=== PATIENT | male | born 1945 | race Caucasian/White ===

== ENCOUNTER → 2016-07-30 | Outpatient (CLI) | payer MEDICARE | END | disposition home or self-care (01) | LOC: LABWHC1 15:15 → EDSTATUS 15:21 | PROVIDERS: ATTEND Family Medicine | DX: R50.9 Fever, unspecified (principal); R09.1 Pleurisy; J20.9 Acute bronchitis, unspecified | CPT/HCPCS: 87502 ==

== ENCOUNTER → 2018-05-09 | Outpatient (CLI) | payer MEDICARE ==
--- NOTE | 2018-05-09 09:34 | MR ---
EXAMINATION TYPE: MR brain wo/w con DATE OF EXAM: 05/09/2018 9:00 AM COMPARISON: NONE HISTORY: Headaches TECHNIQUE: Multiplanar, multiecho imaging of the brain was obtained with and without intravenous adm inistration of 7.5 mL intravenous Gadavist. FINDINGS: Midline structures are unremarkable. There is a normal craniocervical junction. Echoplanar diffusion imaging is normal. There are normal vascular flow voids. The orbits are normal. There is no evidence of a CP angle mass lesion. There are rare subcentimeter FLAIR lesions in the deep white matter tracts of the cerebral hemisphere s. These number approximately 4. These are nonspecific. A differential diagnosis would include hypert ension, demyelination, small vessel disease, migraine headaches and Lyme's disease. There is no mass effect, midline shift or intracranial blood. Following the intravenous administration of gadolinium, I do not see evidence of abnormal enhancement . IMPRESSION: 1. NO ACUTE INTRACRANIAL ABNORMALITY. 2. RARE, FLAIR LESIONS OF UNCERTAIN ETIOLOGY.
== END ==
LOC: RADMRIMAIN 07:33
PROVIDERS: ATTEND Internal Medicine Geriatric Medicine
DX: R51 Headache (principal); Z01.818 Encounter for other preprocedural examination
CPT/HCPCS: 82565; 84520; 70553; 36415; A9585

== ENCOUNTER → 2020-02-01 | Outpatient (CLI) | payer MEDICARE | END | disposition home or self-care (01) | LOC: LABWHC1 11:14 | PROVIDERS: ATTEND Nurse Practitioner | DX: R11.0 Nausea (principal) | CPT/HCPCS: 36415; 83013 ==

== ENCOUNTER → 2020-05-25 | Outpatient (CLI) | payer MEDICARE ==
--- NOTE | 2020-05-25 10:28 | US ---
EXAMINATION TYPE: US kidneys/renal and bladder DATE OF EXAM: 05/25/2020 COMPARISON: NONE CLINICAL HISTORY: N20.1 Calculus of Ureter. 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 Mild right hydronephrosis. 2. Suspected left hydronephrosis. A peripelvic cyst could be considered.
== END | disposition home or self-care (01) ==
LOC: RADUSWWP 09:42
PROVIDERS: ATTEND Urology
DX: N13.30 Unspecified hydronephrosis (principal)
CPT/HCPCS: 76770

== ENCOUNTER 2020-12-07 20:31 | Emergency (ER) | payer MEDICARE ==
[2020-12-07 20:45] VITALS: BP 159/73; PULSE 58; RESP 17; TEMP 98.2
[2020-12-07] MEDS ORDERED: FLUORESCEIN STRIPS 1 MG STRIP LEFT EYE ONE (21:23)
[2020-12-07] MEDS ORDERED: PROPARACAINE 0.5% OPHTH DROPS 15 ML BTL LEFT EYE STA (21:23)
[2020-12-07] MEDS ORDERED: POLYMYXIN B-TRIMETHOPRIM SULF (10,000-1) OPHTH DROPS 10 ML BTL LEFT EYE STA (21:53)
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
== END 2020-12-07 22:31 | disposition home or self-care (01) ==
LOC: EC 20:31
DX: T15.02XA Foreign body in cornea, left eye, initial encounter (principal); E11.9 Type 2 diabetes mellitus without complications; K21.9 Gastro-esophageal reflux disease without esophagitis; Z79.84 Long term (current) use of oral hypoglycemic drugs; Z79.899 Other long term (current) drug therapy; W22.8XXA Striking against or struck by other objects, initial encounter
CPT/HCPCS: 65222; 99283

== ENCOUNTER 2022-09-06 11:27 | Inpatient (IN) | payer MEDICARE ==
[2022-09-06] MEDS ORDERED: ACETAMINOPHEN TAB 500 MG TAB PO STA (11:29)
[2022-09-06] MEDS ORDERED: IBUPROFEN 600 MG TAB PO STA (11:29)
--- NOTE | 2022-09-06 11:34 | ED ---
General Adult HPI - General Stated complaint: Weakness Time Seen by Provider: 09/06/22 11:27 Source: patient, RN notes reviewed, old records reviewed - History of Present Illness Initial comments: This is a 77-year-old male presents emergency Department because he started not feeling well yesterday. Today he was found outside sitting in the sun with 101 fever according to EMS. Patient stated he is vomiting this morning. Patient states he had coded and because of that he is being treated for pericarditis and A. fib. According to EMS states that he is not responding as quick as he normally does. Patient denies any chest pain or palpitations. Patient denies abdominal pain. Patient states is no longer nauseated. Patient denies any dysuria hematuria urinary frequency. - Related Data Home Medications Medication Instructions Recorded Confirmed Atorvastatin [Lipitor] 20 mg PO HS 04/26/14 09/06/22 Omeprazole [PriLOSEC] 20 mg PO DAILY 04/26/14 09/06/22 ARIPiprazole 2 mg PO PC-[id number] 07/30/22 09/06/22 Aspirin EC [Ecotrin Low Dose] 81 mg PO HS 07/30/22 09/06/22 Docusate [Colace] 100 mg PO BID 07/30/22 09/06/22 Levothyroxine Sodium [Synthroid] 75 mcg PO DAILY 07/30/22 09/06/22 Insulin Degludec [Tresiba 12 units SQ DIRECTED 09/06/22 09/06/22 Flextouch U-100 Pen] Losartan [Cozaar] 25 mg PO DAILY 09/06/22 09/06/22 Metoprolol Tartrate [Lopressor] 25 mg PO DAILY PRN 09/06/22 09/06/22 amLODIPine [Norvasc] 2.5 mg PO HS 09/06/22 09/06/22 metFORMIN HCL 500 mg PO BID 09/06/22 09/06/22 Previous Rx's Medication Instructions Recorded Colchicine [Colcrys] 0.6 mg PO DAILY 14 Days #14 each 07/31/22 Apixaban [Eliquis] 5 mg PO BID #60 tab 08/01/22 Allergies Allergy/AdvReac Type Severity Reaction Status Date / Time No Known Allergies Allergy Verified 09/06/22 13:20 Review of Systems ROS Statement: Those systems with pertinent positive or pertinent negative responses have been documented in the HPI. ROS Other: All systems not noted in ROS Statement are negative. Past Medical History Past Medical History: Cancer, Diabetes Mellitus, GERD/Reflux Additional Past Medical History / Comment(s): hx kidney stones, prostate cancer, r leg stent History of Any Multi-Drug Resistant Organisms: None Reported Past Surgical History: Hernia Repair Additional Past Surgical History / Comment(s): prostatectomy, lithotripsy, cataract, pyeloplasty, Past Anesthesia/Blood Transfusion Reactions: No Reported Reaction Past Psychological History: Depression Smoking Status: Never smoker Past Alcohol Use History: Occasional Additional Past Alcohol Use History / Comment(s): 1 glass wine daily Past Drug Use History: None Reported - Past Family History Father Family Medical History: Cancer General Exam - General Exam Comments Initial Comments: GENERAL: Patient is well-developed and well-nourished. Patient is nontoxic and well- hydrated and is in mild distress. Patient is 102 temperature ENT: Neck is soft and supple. No significant lymphadenopathy is noted. Oropharynx is clear. Moist mucous membranes. Neck has full range of motion without eliciting any pain. EYES: The sclera were anicteric and conjunctiva were pink and moist. Extraocular movements were intact and pupils were equal round and reactive to light. Eyelids were unremarkable. PULMONARY: Unlabored respirations. Good breath sounds bilaterally. No audible rales rhonchi or wheezing was noted. CARDIOVASCULAR: There is a regular rate and rhythm without any murmurs gallops or rubs. ABDOMEN: Soft and nontender with normal bowel sounds. SKIN: Skin is clear with no lesions or rashes and otherwise unremarkable. NEUROLOGIC: Patient is alert and oriented 2. Cranial nerves II through XII are grossly intact. Motor and sensory are also intact. Normal speech, volume and content. Symmetrical smile. MUSCULOSKELETAL: Normal extremities with adequate strength and full range of motion. No lower extremity swelling or edema. No calf tenderness. LYMPHATICS: No significant lymphadenopathy is noted PSYCHIATRIC: Normal psychiatric evaluation. Course Vital Signs 09/06/22 09/06/22 09/06/22 11:33 12:43 13:26 Temperature 102.2 F H 100.4 F H 98.8 F Pulse Rate 71 64 64 Respiratory 16 18 17 Rate Blood Pressure 128/76 110/65 110/65 O2 Sat by Pulse 93 L 93 L 96 Oximetry 04/14/23 04/14/23 14:15 15:01 Temperature 98 F Pulse Rate 60 60 Respiratory 18 17 Rate Blood Pressure 99/59 109/66 O2 Sat by Pulse 97 94 L Oximetry Medical Decision Making - Medical Decision Making EKG was interpreted by myself shows a sinus rhythm at 73 bpm WV interval 266 QRS 96 QT interval 361 QTC is 386. Patient's EKG shows no ST segment elevation or depression. Was pt. sent in by a medical professional or institution (, PA, BLAST FURNACE KEEPER HELPER, urgent care, hospital, or assisted...) When possible be specific @ -No Did you speak to anyone other than the patient for history (EMS, parent, family, police, friend...)? What history was obtained from this source @ -No Did you review nursing and triage notes (agree or disagree)? Why? @ -I reviewed and agree with nursing and triage notes Were old charts reviewed (outside hosp., previous admission, EMS record, old EKG, old radiological studies, urgent care reports/EKG's, assisted records)? Report findings @ -Review prior charts prior labwork on this patient. Differential Diagnosis (chest pain, altered mental status, abdominal pain women, abdominal pain men, vaginal bleeding, weakness, fever, dyspnea, syncope, headache, dizziness, GI bleed, back pain, seizure, CVA, palpatations, mental health, musculoskeletal)? @ -Differential Fever: Pneumonia, viral URI, endocarditis, myocarditis, pericarditis, otitis, sinusitis, peritonsillar Abscess, retropharyngeal Abscess, epiglottitis, peritonitis, appendicitis, Jovanna cystitis, diverticulitis, hepatitis, colitis, UTI, PID, TOA, pyelonephritis, prostatitis, epididymitis, meningitis, encephalitis, pulmonary embolism, CVA, thyroid storm, pancreatitis, adrenal crisis, cavernous sinus thrombosis, this is not meant to be an all-inclusive list. EKG interpreted by me (3pts min.). @ -As above X-rays interpreted by me (1pt min.). @ -Chest x-ray was interpreted by myself showed no acute abnormality CT interpreted by me (1pt min.). @ -None done U/S interpreted by me (1pt. min.). @ -None done What testing was considered but not performed or refused? (CT, X-rays, U/S, labs)? Why? @ -None What meds were considered but not given or refused? Why? @ -None Did you discuss the management of the patient with other professionals (professionals i.e. , PA, BLAST FURNACE KEEPER HELPER, lab, RT, psych nurse, social science research assistant, inside sales administrator, teacher, college service officer, outsole caser)? Give summary @ -Spoke with she he agreed to admit the patient admitted the patient wrote admitting orders Was smoking cessation discussed for >3mins.? @ -No Was critical care preformed (if so, how long)? @ -No Were there social determinants of health that impacted care today? How? (Homelessness, low income, unemployed, alcoholism, drug addiction, transportation, low edu. Level, literacy, decrease access to med. care, long-term, rehab)? @ -No Was there de-escalation of care discussed even if they declined (Discuss DNR or withdrawal of care, Hospice)? DNR status @ -No What co-morbidities impacted this encounter? (DM, HTN, Smoking, COPD, CAD, Cancer, CVA, ARF, Chemo, Hep., AIDS, mental health diagnosis, sleep apnea, morbid obesity)? @ -None Was patient admitted / discharged? Hospital course, mention meds given and route, prescriptions, significant lab abnormalities, going to OR and other pertinent info. @ -Patient had a fever when he arrived in the 102 per patient's continued on the Motrin. That brought the fever down. Patient also received normal saline. When I went back to reevaluate the patient after lab work returned patient was back to his neurologic baseline however he was still very weak and according to the he was unable to stand earlier when he was at home. Patient remains extremely weak currently. No source for the infection has been found Undiagnosed new problem with uncertain prognosis? @ -No Drug Therapy requiring intensive monitoring for toxicity (Heparin, Nitro, Insulin, Cardizem)? @ -No Were any procedures done? @ -No Diagnosis/symptom? @ -Fever of unknown origin Acute, or Chronic, or Acute on Chronic? @ -Acute Uncomplicated (without systemic symptoms) or Complicated (systemic symptoms)? @ -default Side effects of treatment? @ -No Exacerbation, Progression, or Severe Exacerbation? @ -No Poses a threat to life or bodily function? How? (Chest pain, [place], [place], pneumonia, PE, COPD, DKA, ARF, appy, cholecystitis, CVA, Diverticulitis, Homicidal, Suicidal, threat to staff... and all critical care pts) @ -No Diagnosis/symptom? @ -Gen. weakness Acute, or Chronic, or Acute on Chronic? @ -Acute Uncomplicated (without systemic symptoms) or Complicated (systemic symptoms)? @ -Uncomplicated Side effects of treatment? @ -none Exacerbation, Progression, or Severe Exacerbation] @ -no Poses a threat to life or bodily function? @ -no - Lab Data Result diagrams: 09/06/22 11:44 09/06/22 11:44 Lab Results 09/06/22 09/06/22 09/06/22 Range/Units 11:44 11:44 11:44 WBC 8.9 (3.8-10.6) k/uL RBC 4.87 (4.30-5.90) m/uL Hgb 12.9 L (13.0-17.5) gm/dL Hct 40.3 (39.0-53.0) % MCV 82.7 (80.0-100.0) fL MCH 26.5 (25.0-35.0) pg MCHC 32.1 (31.0-37.0) g/dL RDW 15.0 (11.5-15.5) % Plt Count 283 (150-450) k/uL MPV 8.2 Neutrophils % 84 % Lymphocytes % 3 % Monocytes % 11 % Eosinophils % 1 % Basophils % 0 % Neutrophils # 7.5 (1.3-7.7) k/uL Lymphocytes # 0.2 L (1.0-4.8) k/uL Monocytes # 1.0 (0-1.0) k/uL Eosinophils # 0.0 (0-0.7) k/uL Basophils # 0.0 (0-0.2) k/uL PT 11.7 (9.0-12.0) sec INR 1.1 (<1.2) APTT 21.3 L (22.0-30.0) sec Sodium (137-145) mmol/L Potassium (3.5-5.1) mmol/L Chloride (98-107) mmol/L Carbon Dioxide (22-30) mmol/L Anion Gap mmol/L BUN (9-20) mg/dL Creatinine (0.66-1.25) mg/dL Est GFR (CKD-EPI)AfAm (>60 ml/min/1.73 sqM) Est GFR (CKD-EPI)NonAf (>60 ml/min/1.73 sqM) Glucose (74-99) mg/dL Plasma Lactic Acid Jj (0.7-2.0) mmol/L Calcium (8.4-10.2) mg/dL Total Bilirubin (0.2-1.3) mg/dL AST (17-59) U/L ALT (4-49) U/L Alkaline Phosphatase (38-126) U/L Total Protein (6.3-8.2) g/dL Albumin (3.5-5.0) g/dL Urine Color Yellow Urine Appearance Clear (Clear) Urine pH 5.0 (5.0-8.0) Ur Specific [place] 1.028 (1.001-1.035) Urine Protein Trace H (Negative) Urine Glucose (UA) 4+ H (Negative) Urine Ketones 1+ H (Negative) Urine Blood Negative (Negative) Urine Nitrite Negative (Negative) Urine Bilirubin Negative (Negative) Urine Urobilinogen <2.0 (<2.0) mg/dL Ur Leukocyte Esterase Negative (Negative) Influenza Type A (PCR) (Not Detectd) Influenza Type B (PCR) (Not Detectd) RSV (PCR) (Not Detectd) SARS-CoV-2 (PCR) (Not Detectd) 09/06/22 09/06/22 09/06/22 Range/Units 11:44 11:44 11:44 WBC (3.8-10.6) k/uL RBC (4.30-5.90) m/uL Hgb (13.0-17.5) gm/dL Hct (39.0-53.0) % MCV (80.0-100.0) fL MCH (25.0-35.0) pg MCHC (31.0-37.0) g/dL RDW (11.5-15.5) % Plt Count (150-450) k/uL MPV Neutrophils % % Lymphocytes % % Monocytes % % Eosinophils % % Basophils % % Neutrophils # (1.3-7.7) k/uL Lymphocytes # (1.0-4.8) k/uL Monocytes # (0-1.0) k/uL Eosinophils # (0-0.7) k/uL Basophils # (0-0.2) k/uL PT (9.0-12.0) sec INR (<1.2) APTT (22.0-30.0) sec Sodium 134 L (137-145) mmol/L Potassium 4.5 (3.5-5.1) mmol/L Chloride 109 H (98-107) mmol/L Carbon Dioxide 18 L (22-30) mmol/L Anion Gap 7 mmol/L BUN 31 H (9-20) mg/dL Creatinine 1.52 H (0.66-1.25) mg/dL Est GFR (CKD-EPI)AfAm 51 (>60 ml/min/1.73 sqM) Est GFR (CKD-EPI)NonAf 44 (>60 ml/min/1.73 sqM) Glucose 133 H (74-99) mg/dL Plasma Lactic Acid Jj 1.0 (0.7-2.0) mmol/L Calcium 7.5 L (8.4-10.2) mg/dL Total Bilirubin 1.7 H (0.2-1.3) mg/dL AST 27 (17-59) U/L ALT 28 (4-49) U/L Alkaline Phosphatase 142 H (38-126) U/L Total Protein 6.4 (6.3-8.2) g/dL Albumin 3.1 L (3.5-5.0) g/dL Urine Color Urine Appearance (Clear) Urine pH (5.0-8.0) Ur Specific [place] (1.001-1.035) Urine Protein (Negative) Urine Glucose (UA) (Negative) Urine Ketones (Negative) Urine Blood (Negative) Urine Nitrite (Negative) Urine Bilirubin (Negative) Urine Urobilinogen (<2.0) mg/dL Ur Leukocyte Esterase (Negative) Influenza Type A (PCR) Not Detected (Not Detectd) Influenza Type B (PCR) Not Detected (Not Detectd) RSV (PCR) Not Detected (Not Detectd) SARS-CoV-2 (PCR) Not Detected (Not Detectd) Disposition Clinical Impression: Altered mental status, Fever of unknown origin, Generalized weakness, History of pericarditis Disposition: ADMITTED IP TO THIS [facility] Referrals: Alexander Cowart MD [Primary Care Provider] - 1-2 days Time of Disposition: 15:16
[2022-09-06] MEDS: SODIUM CHLORIDE 0.9% 500 ML 500 ML IV SCH ×3 (11:49→13:53)
[2022-09-06 12:05] LABS: Basophils % (A) 0 %; Eosinophils % (A) 1 %; HCT 40.3 % (39.0-53.0); HGB 12.9 gm/dL (13.0-17.5); Lymphocytes # (A) 0.2 k/uL (1.0-4.8); Lymphocytes % (A) 3 %; MCH 26.5 pg (25.0-35.0); MCHC 32.1 g/dL (31.0-37.0); MCV 82.7 fL (80.0-100.0); Mean Platelet Volume 8.2; Monocytes % (A) 11 %; Neutrophils # (A) 7.5 k/uL (1.3-7.7); Neutrophils % (A) 84 %; Platelet Count 283 k/uL (150-450); RBC 4.87 m/uL (4.30-5.90); WBC 8.9 k/uL (3.8-10.6)
--- NOTE | 2022-09-06 12:17 | XR ---
EXAMINATION TYPE: XR chest 2V DATE OF EXAM: 09/06/2022 COMPARISON: 07/30/2022 TECHNIQUE: PA and lateral views submitted. HISTORY: Fever FINDINGS: Bibasilar subsegmental consolidation. Heart is enlarged. There is no pneumothorax, pleural effusion, or focal pneumonia. Heart size normal and no overt failure. Osseous structures demonstrate hypertrop hic and degenerative changes of the spine. There is elevation of the right clavicle relative to the acromion correlate for AC joint separation. IMPRESSION: 1. Cardiac megaly with basilar atelectasis favored over pneumonia correlate clinically. 2. There is elevation of the right clavicle relative to the acromion correlate for AC joint separatio n.
[2022-09-06 12:19] LABS: Albumin 3.1 g/dL (3.5-5.0); Calcium 7.5 mg/dL (8.4-10.2); Potassium 4.5 mmol/L (3.5-5.1); Total Bilirubin 1.7 mg/dL (0.2-1.3); Total Protein 6.4 g/dL (6.3-8.2)
[2022-09-06 12:30] LABS: INR 1.1 (<1.2); Prothrombin Time 11.7 sec (9.0-12.0)
[2022-09-06 12:32] LABS: Partial Thromboplastin Time 21.3 sec (22.0-30.0)
[2022-09-06 14:47] LABS: Appearance,Urine Clear (Clear); Bilirubin,Urine Negative (Negative); Blood,Urine Negative (Negative); Color,Urine Yellow; Glucose,Urine (UA) 4+ (Negative); Ketones,Urine 1+ (Negative); Leukocyte Esterase,Urine Negative (Negative); Nitrite,Urine Negative (Negative); Protein,Urine Trace (Negative); Specific Gravity,Urine 1.028 (1.001-1.035); Urobilinogen,Urine <2.0 mg/dL (<2.0)
[2022-09-06] MEDS ORDERED: SODIUM CHLORIDE 0.9% 1,000 ML IV ONE ×2 (15:02→15:16)
[2022-09-06 15:19] LABS: Glucose,Whole Blood 118 mg/dL (70-110)
[2022-09-06 16:58] LABS: Glucose,Whole Blood 85 mg/dL (70-110)
[2022-09-06 20:22] LABS: Glucose,Whole Blood 162 mg/dL (70-110)
[2022-09-06] MEDS ORDERED: METOPROLOL TARTRATE 25 MG TAB PO PRN (20:22)
--- NOTE | 2022-09-06 21:07 | CT ---
EXAMINATION TYPE: CT brain wo con CT DLP: 1119.4 mGycm, Automated exposure control for dose reduction was used. DATE OF EXAM: 09/06/2022 8:49 PM COMPARISON: MRI brain 05/09/2018 CLINICAL INDICATION:Male, 77 years old with history of transient ams on blood thinner, AMS TECHNIQUE: Brain: Axial CT images of the brain were obtained with coronal and sagittal reformats created and rev iewed. Contrast used: None. Oral contrast used: None. FINDINGS: Brain: Extra-axial spaces: No abnormal extra-axial fluid collections. Ventricular system: Within normal limits Cerebral parenchyma: No acute intraparenchymal hemorrhage or mass effect. The vazquez-white junction is well differentiated. Cerebellum: Unremarkable. Mass effect: No evidence of midline shift. Intracranial vasculature: Atherosclerotic calcifications of the intracranial vessels. Soft tissues: Normal. Calvarium/osseous structures: No depressed skull fracture. Paranasal sinuses and mastoid air cells: Mild scattered paranasal sinus disease. Visualized orbits: Orbital contents are intact. IMPRESSION: No acute intracranial process.
--- NOTE | 2022-09-06 21:08 | P.HPIM ---
History of Present Illness This is a pleasant 77 years old male with past medical history of pericarditis about one month ago since then he's complaining from chronic dyspnea and he had chest pain at that time but no more chest pain as he states. Other medical problems including peripheral artery disease status post stent and the right leg, prostatectomy, lithotripsy, cataract, pyeloplasty,, GERD, diabetes mellitus Presents because he woke up this morning because of projectile vomiting about 2:00 in the morning, he denies any blood in his vomiting, he denies abdominal pain or nausea or headache or change in mental status However he woke up again about 3-4 AM and he was more confused as per patient and at bedside. So patient and decided to come to emergency room. By the time he arrivied to the emergency room his confusion has resolved lying in bed in 45 of the head of the bed, fully awake oriented to time place and person, denies headache, no current dizziness. Patient reports some dizziness earlier and some blurred vision but this has resolved. No overt weakness or numbness in his extremities to suspect stroke. He denies chest pain for the last month, last time he had chest pain about one month ago when he had pericardial disease, no more chest pain currently, he has dyspnea and he has tolerated forward to feel better since then. Currently he denies abdominal pain vomiting or diarrhea. Earlier he had projectile bowel movement but less resolved as well.. He denies any urinary symptoms like no dysuria urgency. No headache dizziness weakness numbness blurred vision or double vision. He denies smoking alcohol or illicit drugs. Labs show an unremarkable CBC, hemoglobin 12.9. INR 1.1. Creatinine at baseline 1.5, sodium 134. Glucose 133, 85 and 162. Bilirubin 1.7. Liver enzymes AST and ALT are within normal limits. Urine analysis showed glucosuria with no evidence of infection Viruses are inspected Chest x-ray: Cardiac medially with basilar atelectasis favored over her pneumonia, correlate clinically There is elevation of the right clavicle relative to acromion related for before meals joint separation Review of Systems Review of systems CONSTITUTIONAL: No fever, no malaise, no fatigue. HEENT: No recent visual problems or hearing problems. Denied any sore throat. CARDIOVASCULAR: No orthopnea, PND, no palpitations, no syncope. PULMONARY: No shortness of breath, no cough, no hemoptysis. GASTROINTESTINAL: No diarrhea, no nausea, no vomiting, no abdominal pain. Normoactive bowel sounds. NEUROLOGICAL: No headaches, no weakness, no numbness. HEMATOLOGICAL: Denies any bleeding or petechiae. GENITOURINARY: Denies any burning micturition, frequency, or urgency. MUSCULOSKELETAL/RHEUMATOLOGICAL: Denies any joint pain, swelling, or any muscle pain. ENDOCRINE: Denies any polyuria or polydipsia. Past Medical History Past Medical History: Cancer, Diabetes Mellitus, GERD/Reflux Additional Past Medical History / Comment(s): hx kidney stones, prostate cancer, r leg stent History of Any Multi-Drug Resistant Organisms: None Reported Past Surgical History: Hernia Repair Additional Past Surgical History / Comment(s): prostatectomy, lithotripsy, cataract, pyeloplasty, Past Anesthesia/Blood Transfusion Reactions: No Reported Reaction Past Psychological History: Depression Smoking Status: Never smoker Past Alcohol Use History: Occasional Additional Past Alcohol Use History / Comment(s): 1 glass wine daily Past Drug Use History: None Reported - Past Family History Father Family Medical History: Cancer Medications and Allergies Home Medications Medication Instructions Recorded Confirmed Type Atorvastatin [Lipitor] 20 mg PO HS 04/26/14 09/06/22 History Omeprazole [PriLOSEC] 20 mg PO DAILY 04/26/14 09/06/22 History ARIPiprazole 2 mg PO PC-BRKFST 07/30/22 09/06/22 History Aspirin EC [Ecotrin Low Dose] 81 mg PO HS 07/30/22 09/06/22 History Docusate [Colace] 100 mg PO BID 07/30/22 09/06/22 History Levothyroxine Sodium [Synthroid] 75 mcg PO DAILY 07/30/22 09/06/22 History Colchicine [Colcrys] 0.6 mg PO DAILY 14 Days #14 each 07/31/22 09/06/22 Rx Apixaban [Eliquis] 5 mg PO BID #60 tab 08/01/22 09/06/22 Rx Insulin Degludec [Tresiba 12 units SQ DIRECTED 09/06/22 09/06/22 History Flextouch U-100 Pen] Losartan [Cozaar] 25 mg PO DAILY 09/06/22 09/06/22 History Metoprolol Tartrate [Lopressor] 25 mg PO DAILY PRN 09/06/22 09/06/22 History amLODIPine [Norvasc] 2.5 mg PO HS 09/06/22 09/06/22 History metFORMIN HCL 500 mg PO BID 09/06/22 09/06/22 History Allergies Allergy/AdvReac Type Severity Reaction Status Date / Time No Known Allergies Allergy Verified 09/06/22 13:20 Physical Exam Vitals: Vital Signs Temp Pulse Pulse Resp BP BP Pulse Ox 09/06/22 16:32 98.0 F 58 L 16 111/73 09/06/22 15:01 60 17 109/66 94 L 09/06/22 14:15 98 F 60 18 99/59 97 09/06/22 13:26 98.8 F 64 17 110/65 96 09/06/22 12:43 100.4 F H 64 18 110/65 93 L 09/06/22 11:33 102.2 F H 71 16 128/76 93 L Intake and Output 09/06/22 09/06/22 09/06/22 06:59 14:59 22:59 Other: Weight 72.575 kg -GENERAL: The patient is alert and oriented x3, not in any acute distress. Well developed, well nourished. Generally weak HEENT: Pupils are round and equally reacting to light. EOMI. No scleral icterus. No conjunctival pallor. Normocephalic, atraumatic. No pharyngeal erythema. No thyromegaly. CARDIOVASCULAR: S1 and S2 present. No murmurs, rubs, or gallops. PULMONARY: Chest is clear to auscultation, no wheezing or crackles. ABDOMEN: Soft, nontender, nondistended, normoactive bowel sounds. No palpable organomegaly. MUSCULOSKELETAL: No joint swelling or deformity. EXTREMITIES: No cyanosis, clubbing, or pedal edema. NEUROLOGICAL: Gross neurological examination did not reveal any focal deficits. SKIN: No rashes. no petechiae. Results CBC & Chem 7: 09/06/22 11:44 09/06/22 11:44 Labs: Abnormal Lab Results - Last 24 Hours (Table) 09/06/22 09/06/22 09/06/22 Range/Units 11:44 11:44 11:44 Hgb 12.9 L (13.0-17.5) gm/dL Lymphocytes # 0.2 L (1.0-4.8) k/uL APTT 21.3 L (22.0-30.0) sec Sodium (137-145) mmol/L Chloride (98-107) mmol/L Carbon Dioxide (22-30) mmol/L BUN (9-20) mg/dL Creatinine (0.66-1.25) mg/dL Glucose (74-99) mg/dL POC Glucose (mg/dL) (70-110) mg/dL Calcium (8.4-10.2) mg/dL Total Bilirubin (0.2-1.3) mg/dL Alkaline Phosphatase (38-126) U/L Albumin (3.5-5.0) g/dL Urine Protein Trace H (Negative) Urine Glucose (UA) 4+ H (Negative) Urine Ketones 1+ H (Negative) 09/06/22 09/06/22 Range/Units 11:44 15:16 Hgb (13.0-17.5) gm/dL Lymphocytes # (1.0-4.8) k/uL APTT (22.0-30.0) sec Sodium 134 L (137-145) mmol/L Chloride 109 H (98-107) mmol/L Carbon Dioxide 18 L (22-30) mmol/L BUN 31 H (9-20) mg/dL Creatinine 1.52 H (0.66-1.25) mg/dL Glucose 133 H (74-99) mg/dL POC Glucose (mg/dL) 118 H (70-110) mg/dL Calcium 7.5 L (8.4-10.2) mg/dL Total Bilirubin 1.7 H (0.2-1.3) mg/dL Alkaline Phosphatase 142 H (38-126) U/L Albumin 3.1 L (3.5-5.0) g/dL Urine Protein (Negative) Urine Glucose (UA) (Negative) Urine Ketones (Negative) Assessment and Plan Assessment: Transient period Of confusion, projectile vomiting, currently resolved Cardiomegaly with history of pericardectomy, rule out cardiac/pericardial disease Acromial clavicular joint disease Diabetes Mellitus Chronic kidney disease most likely diabetic nephropathy History of GERD/Reflux hx kidney stone History of prostate cancer, status post proctectomy History of peripheral vascular disease status post stent of the right lower extremity Plan: patient was admitted with a recommendation for cardiology evaluation , Which is pending Also we will check CT of the brain before restarting his aspirin and Eliquis/blood thinner Monitor vitals and labs in the morning Labs and medication were reviewed.. Continue same treatment. Continue with symptomatic treatment. Resume home medication. Monitor labs and vitals. DVT and GI prophylaxis. Further recommendations as per clinical course of the patient DVT prophylaxis: On Eliquis and aspirin GI Prophylaxis: Pepcid PT/OT: Pending Prognosis is guarded
[2022-09-06] MEDS ORDERED: NON FORMULARY DRUG (Aspirin Ec 81 MG Tablet) PO SCH (21:45)
[2022-09-06] MEDS: DOCUSATE 100 MG CAP PO SCH (22:16)
[2022-09-06] MEDS: ATORVASTATIN 20 MG TAB PO SCH (22:16)
[2022-09-06] MEDS: metFORMIN 500 MG TAB PO SCH (22:16)
[2022-09-06] MEDS: amLODIPine 2.5 MG TAB PO SCH (22:16)
[2022-09-06] MEDS: APIXABAN 5 MG TAB PO SCH (22:16)
[2022-09-07] MEDS: LEVOTHYROXINE 75 MCG TAB PO SCH (05:46)
[2022-09-07 06:31] LABS: Glucose,Whole Blood 196 mg/dL (70-110)
[2022-09-07 08:13] LABS: Basophils % (A) 0 %; Eosinophils % (A) 0 %; HGB 12.9 gm/dL (13.0-17.5); Lymphocytes # (A) 0.3 k/uL (1.0-4.8); Lymphocytes % (A) 6 %; MCH 26.9 pg (25.0-35.0); MCHC 32.1 g/dL (31.0-37.0); MCV 83.7 fL (80.0-100.0); Mean Platelet Volume 9.2; Monocytes # (A) 0.9 k/uL (0-1.0); Monocytes % (A) 17 %; Neutrophils % (A) 75 %; Platelet Count 181 k/uL (150-450); RBC 4.78 m/uL (4.30-5.90); RDW 15.2 % (11.5-15.5); WBC 5.3 k/uL (3.8-10.6)
[2022-09-07 08:18] LABS: ALT 21 U/L (4-49); African American GFR (CKD) 58 (>60 ml/min/1.73 sqM); Albumin 2.4 g/dL (3.5-5.0); Albumin/Globulin Ratio 0.8; Anion Gap 7 mmol/L; Blood Urea Nitrogen 28 mg/dL (9-20); Carbon Dioxide 17 mmol/L (22-30); Chloride 110 mmol/L (98-107); Globulin 3.2 g/dL; Glucose 170 mg/dL (74-99); Non-African American GFR(CKD) 50 (>60 ml/min/1.73 sqM); Sodium 134 mmol/L (137-145); Total Bilirubin 1.5 mg/dL (0.2-1.3); Total Protein 5.6 g/dL (6.3-8.2)
[2022-09-07 08:24] LABS: Calcium 6.4 mg/dL (8.4-10.2); Potassium 4.8 mmol/L (3.5-5.1)
[2022-09-07 08:25] LABS: AST 34 U/L (17-59); Alkaline Phosphatase 91 U/L (38-126)
[2022-09-07] MEDS: LOSARTAN 25 MG TAB PO SCH (09:43)
[2022-09-07] MEDS: COLCHICINE 0.6 MG EACH PO SCH (09:43)
[2022-09-07] MEDS: DOCUSATE 100 MG CAP PO SCH ×2 (09:44→20:35)
[2022-09-07] MEDS: metFORMIN 500 MG TAB PO SCH ×2 (09:44→20:36)
[2022-09-07] MEDS: ARIPiprazole 2 MG TAB PO SCH (09:44)
[2022-09-07 11:31] LABS: Glucose,Whole Blood 124 mg/dL (70-110)
[2022-09-07] MEDS: APIXABAN 5 MG TAB PO SCH ×2 (12:00→20:35)
[2022-09-07] MEDS ORDERED: CALCIUM CARBONATE 500 MG CHEWABLE PO PRN (14:25)
[2022-09-07 16:22] LABS: Glucose,Whole Blood 152 mg/dL (70-110)
[2022-09-07] MEDS ORDERED: CALCIUM GLUCONATE IN NACL 1 GM in SALINE 1 100ML.BAG IVPB ONE (18:41)
--- NOTE | 2022-09-07 18:48 | P.PN ---
Subjective This is a pleasant 77 years old male with past medical history of pericarditis about one month ago since then he's complaining from chronic dyspnea and he had chest pain at that time but no more chest pain as he states. Other medical problems including peripheral artery disease status post stent and the right leg, prostatectomy, lithotripsy, cataract, pyeloplasty,, GERD, diabetes mellitus Presents because he woke up this morning because of projectile vomiting about 2:00 in the morning, he denies any blood in his vomiting, he denies abdominal pain or nausea or headache or change in mental status However he woke up again about 3-4 AM and he was more confused as per patient and at bedside. So patient and decided to come to emergency room. By the time he arrivied to the emergency room his confusion has resolved lying in bed in 45 of the head of the bed, fully awake oriented to time place and person, denies headache, no current dizziness. Patient reports some dizziness earlier and some blurred vision but this has resolved. No overt weakness or numbness in his extremities to suspect stroke. He denies chest pain for the last month, last time he had chest pain about one month ago when he had pericardial disease, no more chest pain currently, he has dyspnea and he has tolerated forward to feel better since then. Currently he denies abdominal pain vomiting or diarrhea. Earlier he had projectile bowel movement but less resolved as well.. He denies any urinary symptoms like no dysuria urgency. No headache dizziness weakness numbness blurred vision or double vision. He denies smoking alcohol or illicit drugs. Labs show an unremarkable CBC, hemoglobin 12.9. INR 1.1. Creatinine at baseline 1.5, sodium 134. Glucose 133, 85 and 162. Bilirubin 1.7. Liver enzymes AST and ALT are within normal limits. Urine analysis showed glucosuria with no evidence of infection Viruses are inspected Chest x-ray: Cardiac medially with basilar atelectasis favored over her pneumonia, correlate clinically There is elevation of the right clavicle relative to acromion related for before meals joint separation 09/07/2022 Patient clinically doing well, states that he is improved and he feels better. He is fully awake and oriented at baseline. No more episodes of confusion, no more episodes of vomiting or diarrhea. No vit al abnormality He has mild hypocalcemia which is replaced. Cardiology on the case and the recommended BNP and echocardiogram which is pending Aspirin 81 mg still on hold until cleared by cardiology. Patient currently on eliquis Creatinine 1.3 Imaging showing right acromioclavicular disease however patient is symptomatic, he couldn't move his arm above his head freely. No pain or tenderness, no other symptoms. Objective - Vital Signs Vital signs: Vital Signs Temp 98.7 F 09/07/22 07:04 Pulse 93 09/07/22 07:04 Resp 17 09/07/22 07:04 BP 128/78 09/07/22 07:04 Pulse Ox 96 09/07/22 07:04 FiO2 Intake & Output 09/06/22 09/07/22 09/07/22 18:59 06:59 18:59 Output Total 0 0 Balance 0 0 Weight 72.575 kg Output: Urine 0 0 Other: # Voids 2 - Exam GENERAL: The patient is alert and oriented x3, not in any acute distress. Well developed, well nourished. HEENT: Pupils are round and equally reacting to light. EOMI. No scleral icterus. No conjunctival pallor. Normocephalic, atraumatic. No pharyngeal erythema. No thyromegaly. CARDIOVASCULAR: S1 and S2 present. No murmurs, rubs, or gallops. PULMONARY: Chest is clear to auscultation, no wheezing or crackles. ABDOMEN: Soft, nontender, nondistended, normoactive bowel sounds. No palpable organomegaly. MUSCULOSKELETAL: No joint swelling or deformity. EXTREMITIES: No cyanosis, clubbing, or pedal edema. NEUROLOGICAL: Gross neurological examination did not reveal any focal deficits. SKIN: No rashes. no petechiae. - Labs CBC & Chem 7: 09/07/22 06:20 09/07/22 06:20 Labs: Abnormal Lab Results - Last 24 Hours (Table) 09/06/22 09/06/22 09/06/22 Range/Units 11:44 11:44 11:44 Hgb 12.9 L (13.0-17.5) gm/dL Lymphocytes # 0.2 L (1.0-4.8) k/uL APTT 21.3 L (22.0-30.0) sec Sodium (137-145) mmol/L Chloride (98-107) mmol/L Carbon Dioxide (22-30) mmol/L BUN (9-20) mg/dL Creatinine (0.66-1.25) mg/dL Glucose (74-99) mg/dL POC Glucose (mg/dL) (70-110) mg/dL Calcium (8.4-10.2) mg/dL Total Bilirubin (0.2-1.3) mg/dL Alkaline Phosphatase (38-126) U/L Total Protein (6.3-8.2) g/dL Albumin (3.5-5.0) g/dL Urine Protein Trace H (Negative) Urine Glucose (UA) 4+ H (Negative) Urine Ketones 1+ H (Negative) 09/06/22 09/06/22 09/06/22 Range/Units 11:44 15:16 20:21 Hgb (13.0-17.5) gm/dL Lymphocytes # (1.0-4.8) k/uL APTT (22.0-30.0) sec Sodium 134 L (137-145) mmol/L Chloride 109 H (98-107) mmol/L Carbon Dioxide 18 L (22-30) mmol/L BUN 31 H (9-20) mg/dL Creatinine 1.52 H (0.66-1.25) mg/dL Glucose 133 H (74-99) mg/dL POC Glucose (mg/dL) 118 H 162 H (70-110) mg/dL Calcium 7.5 L (8.4-10.2) mg/dL Total Bilirubin 1.7 H (0.2-1.3) mg/dL Alkaline Phosphatase 142 H (38-126) U/L Total Protein (6.3-8.2) g/dL Albumin 3.1 L (3.5-5.0) g/dL Urine Protein (Negative) Urine Glucose (UA) (Negative) Urine Ketones (Negative) 09/07/22 09/07/22 09/07/22 Range/Units 06:20 06:20 06:29 Hgb 12.9 L (13.0-17.5) gm/dL Lymphocytes # 0.3 L (1.0-4.8) k/uL APTT (22.0-30.0) sec Sodium 134 L (137-145) mmol/L Chloride 110 H (98-107) mmol/L Carbon Dioxide 17 L (22-30) mmol/L BUN 28 H (9-20) mg/dL Creatinine 1.35 H (0.66-1.25) mg/dL Glucose 170 H (74-99) mg/dL POC Glucose (mg/dL) 196 H (70-110) mg/dL Calcium 6.4 L* (8.4-10.2) mg/dL Total Bilirubin 1.5 H (0.2-1.3) mg/dL Alkaline Phosphatase (38-126) U/L Total Protein 5.6 L (6.3-8.2) g/dL Albumin 2.4 L (3.5-5.0) g/dL Urine Protein (Negative) Urine Glucose (UA) (Negative) Urine Ketones (Negative) Assessment and Plan Assessment: Transient period Of confusion, projectile vomiting, currently resolved Cardiomegaly with history of pericardectomy, rule out cardiac/pericardial disease Mild hypocalcemia Acromial clavicular joint image abnormality, asymptomatic Diabetes Mellitus Chronic kidney disease most likely diabetic nephropathy History of GERD/Reflux hx kidney stone History of prostate cancer, status post proctectomy History of peripheral vascular disease status post stent of the right lower extremity Plan: Order 1 dose of calcium gluconate Follow-up echocardiogram [employer]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 Continue same treatment. Continue with symptomatic treatment. Resume home medication. Monitor labs and vitals. DVT and GI prophylaxis. Further recommendations as per clinical course of the patie nt DVT prophylaxis: On Eliquis n GI Prophylaxis: Pepcid Prognosis is guarded
[2022-09-07] MEDS: ATORVASTATIN 20 MG TAB PO SCH (20:35)
[2022-09-07] MEDS: amLODIPine 2.5 MG TAB PO SCH (20:36)
[2022-09-07 21:27] LABS: Glucose,Whole Blood 183 mg/dL (70-110)
--- NOTE | 2022-09-08 00:24 | P.CRDCN ---
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 Patient had recently been seen approximate month and a half ago and diagnosed with pericarditis and treated with colchicine. Initially woke up at around 2 AM with nausea and projectile vomiting which she had never had before. He denied any actual abdominal pain. Back to sleep however woke up again at 3-4 and it was more confused and not quite feeling himself. He denied any focal weakness however felt weak all over and fatigue and therefore decided come to emergency department. He was found to have fever of 102 and denies any pain with urination however has been having some cough mainly when he lies flat. This has been going on for a few weeks. He admits that the pericarditis he was having more chest pain. Blood work shows white blood cell count 5.3, hemoglobin 12.9, sodium 134, bicarb 18, creatinine 1.5, improved to 1.3 today, total bilirubin 1.7, albumin 3.1. EKG shows sinus rhythm with low voltage. Review Of Systems: At the time of my evaluation: Constitutional: No fever, no chills. No weakness, fatigue or lethargy. EENT: No headache. No dizziness. Lungs: +shortness of breath, +cough, no sputum production. No wheezing. Cardiovascular: No chest pain, no lower extremity edema. No palpitations. No paroxysmal nocturnal dyspnea. No orthopnea. No lightheadedness or dizziness. No syncopal episodes. Abdominal: No abdominal pain. No nausea, vomiting. No diarrhea. No constipati on. No bloody or tarry stools. Genitourinary: No dysuria.. No urinary retention. Musculoskeletal: No myalgias. No muscle weakness, no frequent falls. No back pain. No neck pain. Integumentary: No wounds. No rash. No unusual bruising. Neurologic: No aphasia. No facial droop. No change in mentation. No head injury. No headache. Psychiatric: No depression. No anxiety. Endocrine: No abnormal blood sugars. Physical examination: Gen: This is a 77-year-old male. He is resting on the ER stretcher and appears to be comfortable and in no acute distress. VS: reviewed HEENT: Head is atraumatic, normocephalic. Pupils equal, round. Sclerae is anicteric. NECK: Supple. No JVD. LUNGS: Clear to auscultation. No wheezes or rhonchi. No intercostal retractions. HEART: Regular rate and rhythm. No murmur. ABDOMEN: Soft. No tenderness. EXTREMITIES: No pedal edema. No calf tenderness. NEUROLOGICAL: Patient is awake, alert and oriented x3. Cranial nerves 2 through 12 are grossly intact. Assessment: Acute onset of nausea and vomiting with additional fevers concerning for possible gastroenteritis versus other Recent cough, shortness breath somewhat worse with lying flat rule out component of heart failure Acute kidney injury, acidosis History of pericarditis Hypertension Hyperlipidemia Hypothyroidism Diabetes mellitus type 2 Congenital left kidney disease and chronic kidney disease Paroxysmal atrial fibrillation, currently sinus rhythm Plan: Patient with fever of 102 and acute onset of nausea and vomiting of unclear etiology. Possible gastroenteritis. Continue current regimen. Monitor kidney function and acidosis. Continue supportive care and further workup of infectious etiologies. Given persistent cough with lying flat, shortness breath as well as EKG with low voltage we will check a limited 2-D echo to evaluate for any degree of pericardial effusion with his recent pericarditis. Otherwise EKG not showing any acute pericarditis and continue colchicine for now. Check proBNP. Further recommendation will follow. Past Medical History Past Medical History: Cancer, Diabetes Mellitus, GERD/Reflux Additional Past Medical History / Comment(s): hx kidney stones, prostate cancer, r leg stent History of Any Multi-Drug Resistant Organisms: None Reported Past Surgical History: Hernia Repair Additional Past Surgical History / Comment(s): prostatectomy, lithotripsy, cataract, pyeloplasty, Past Anesthesia/Blood Transfusion Reactions: No Reported Reaction Past Psychological History: Depression Smoking Status: Never smoker Past Alcohol Use History: Occasional Additional Past Alcohol Use History / Comment(s): 1 glass wine daily Past Drug Use History: None Reported - Past Family History Father Family Medical History: Cancer Medications and Allergies Home Medications Medication Instructions Recorded Confirmed Type Atorvastatin [Lipitor] 20 mg PO HS 04/26/14 09/06/22 History Omeprazole [PriLOSEC] 20 mg PO DAILY 04/26/14 09/06/22 History ARIPiprazole 2 mg PO PC-BRKFST 07/30/22 09/06/22 History Aspirin EC [Ecotrin Low Dose] 81 mg PO HS 07/30/22 09/06/22 History Docusate [Colace] 100 mg PO BID 07/30/22 09/06/22 History Levothyroxine Sodium [Synthroid] 75 mcg PO DAILY 07/30/22 09/06/22 History Colchicine [Colcrys] 0.6 mg PO DAILY 14 Days #14 each 07/31/22 09/06/22 Rx Apixaban [Eliquis] 5 mg PO BID #60 tab 08/01/22 09/06/22 Rx Insulin Degludec [Tresiba 12 units SQ DIRECTED 09/06/22 09/06/22 History Flextouch U-100 Pen] Losartan [Cozaar] 25 mg PO DAILY 09/06/22 09/06/22 History Metoprolol Tartrate [Lopressor] 25 mg PO DAILY PRN 09/06/22 09/06/22 History amLODIPine [Norvasc] 2.5 mg PO HS 09/06/22 09/06/22 History metFORMIN HCL 500 mg PO BID 09/06/22 09/06/22 History Allergies Allergy/AdvReac Type Severity Reaction Status Date / Time No Known Allergies Allergy Verified 09/06/22 13:20 Physical Exam Vitals: Vital Signs Temp Pulse Resp BP BP Pulse Ox 09/07/22 13:55 98.6 F 74 16 118/71 95 09/07/22 09:22 98.1 F 72 16 144/79 96 09/07/22 07:04 98.7 F 93 17 128/78 96 09/07/22 00:44 99.0 F 71 16 132/75 95 Intake and Output 09/07/22 09/07/22 09/08/22 14:59 22:59 06:59 Intake Total 1080 Balance 1080 Intake: Oral 1080 Other: # Voids 3 Results 09/07/22 06:20 09/07/22 06:20 Cardiac Enzymes 09/07/22 Range/Units 06:20 AST 34 (17-59) U/L CBC 09/07/22 Range/Units 06:20 WBC 5.3 (3.8-10.6) k/uL RBC 4.78 (4.30-5.90) m/uL Hgb 12.9 L (13.0-17.5) gm/dL Hct 40.0 (39.0-53.0) % Plt Count 181 (150-450) k/uL Comprehensive Metabolic Panel 09/07/22 Range/Units 06:20 Sodium 134 L (137-145) mmol/L Potassium 4.8 (3.5-5.1) mmol/L Chloride 110 H (98-107) mmol/L Carbon Dioxide 17 L (22-30) mmol/L BUN 28 H (9-20) mg/dL Creatinine 1.35 H (0.66-1.25) mg/dL Glucose 170 H (74-99) mg/dL Calcium 6.4 L* (8.4-10.2) mg/dL Unconjugated Bilirubin 1.0 (0.0-1.1) mg/dL AST 34 (17-59) U/L ALT 21 (4-49) U/L Alkaline Phosphatase 91 (38-126) U/L Total Protein 5.6 L (6.3-8.2) g/dL Albumin 2.4 L (3.5-5.0) g/dL Current Medications Generic Name Dose Route Start Last Admin Trade Name Freq PRN Reason Stop Dose Admin Amlodipine Besylate 2.5 mg 09/06/22 21:00 09/07/22 20:36 Amlodipine 2.5 Mg Tab PO 2.5 mg HS SHELLI Administration Apixaban 5 mg 09/06/22 21:45 09/07/22 20:35 Apixaban 5 Mg Tab PO 5 mg BID SHELLI Administration Protocol Aripiprazole 2 mg 09/07/22 08:30 09/07/22 09:44 Aripiprazole 2 Mg Tab PO 2 mg PC-BRKFST SHELLI Administration Atorvastatin Calcium 20 mg 09/06/22 21:00 09/07/22 20:35 Atorvastatin 20 Mg Tab PO 20 mg HS SHELLI Administration Calcium Carbonate/Glycine 1,000 mg 09/07/22 14:25 09/07/22 14:44 Calcium Carbonate 500 Mg Chewable PO 1,000 mg QID PRN Administration Heartburn Colchicine 0.6 mg 09/07/22 09:00 09/07/22 09:43 Colchicine 0.6 Mg Each PO 0.6 mg DAILY SHELLI Administration Docusate Sodium 100 mg 09/06/22 21:00 09/07/22 20:35 Docusate 100 Mg Cap PO 100 mg BID SHELLI Administration Levothyroxine Sodium 75 mcg 09/07/22 06:30 09/07/22 05:46 Levothyroxine 75 Mcg Tab PO 75 mcg DAILY@0630 SHELLI Administration Losartan Potassium 25 mg 09/07/22 09:00 09/07/22 09:43 Losartan 25 Mg Tab PO 25 mg DAILY SHELLI Administration Metformin HCl 500 mg 09/06/22 21:00 09/07/22 20:36 Metformin 500 Mg Tab PO 500 mg BID SHELLI Administration Metoprolol Tartrate 25 mg 09/06/22 20:22 Metoprolol Tartrate 25 Mg Tab PO DAILY PRN HEART PALPITATIONS Intake and Output 09/07/22 09/07/22 09/08/22 14:59 22:59 06:59 Intake Total 1080 Balance 1080 Intake: Oral 1080 Other: # Voids 3 09/07/22 06:20 09/07/22 06:20
[2022-09-08 05:44] LABS: Glucose,Whole Blood 138 mg/dL (70-110)
[2022-09-08] MEDS: LEVOTHYROXINE 75 MCG TAB PO SCH (05:59)
[2022-09-08] MEDS: metFORMIN 500 MG TAB PO SCH ×2 (07:18→20:44)
[2022-09-08] MEDS: LOSARTAN 25 MG TAB PO SCH (07:18)
[2022-09-08] MEDS: APIXABAN 5 MG TAB PO SCH ×2 (07:18→20:44)
[2022-09-08] MEDS: COLCHICINE 0.6 MG EACH PO SCH (07:19)
[2022-09-08] MEDS: ARIPiprazole 2 MG TAB PO SCH (07:19)
[2022-09-08] MEDS: DOCUSATE 100 MG CAP PO SCH ×2 (07:19→20:45)
[2022-09-08 09:13] LABS: Anion Gap 8.1 mmol/L (10.00-18.00); BUN/Creat Ratio 13.08 Ratio (12.00-20.00); Blood Urea Nitrogen 19.1 mg/dL (9.0-27.0); Calcium 7.6 mg/dL (8.7-10.3); Carbon Dioxide 20.6 mmol/L (20.0-27.5); Non-African American GFR(CKD) 45.7 (60.0-200.0); Potassium 4.4 mmol/L (3.5-5.5)
[2022-09-08 11:37] LABS: Glucose,Whole Blood 211 mg/dL (70-110)
--- NOTE | 2022-09-08 14:16 | P.PN ---
Subjective Progress Note Date: 09/08/22 This is a pleasant 77 years old male with past medical history of pericarditis about one month ago since then he's complaining from chronic dyspnea and he had chest pain at that time but no more chest pain as he states. Other medical problems including peripheral artery disease status post stent and the right leg, prostatectomy, lithotripsy, cataract, pyeloplasty,, GERD, diabetes mellitus Presents because he woke up this morning because of projectile vomiting about 2:00 in the morning, he denies any blood in his vomiting, he denies abdominal pain or nausea or headache or change in mental status However he woke up again about 3-4 AM and he was more confused as per patient and at bedside. So patient and decided to come to emergency room. By the time he arrivied to the emergency room his confusion has resolved lying in bed in 45 of the head of the bed, fully awake oriented to time place and person, denies headache, no current dizziness. Patient reports some dizziness earlier and some blurred vision but this has resolved. No overt weakness or numbness in his extremities to suspect stroke. He denies chest pain for the last month, last time he had chest pain about one month ago when he had pericardial disease, no more chest pain currently, he has dyspnea and he has tolerated forward to feel better since then. Currently he denies abdominal pain vomiting or diarrhea. Earlier he had projectile bowel movement but less resolved as well.. He denies any urinary symptoms like no dysuria urgency. No headache dizziness weakness numbness blurred vision or double vision. He denies smoking alcohol or illicit drugs. Labs show an unremarkable CBC, hemoglobin 12.9. INR 1.1. Creatinine at baseline 1.5, sodium 134. Glucose 133, 85 and 162. Bilirubin 1.7. Liver enzymes AST and ALT are within normal limits. Urine analysis showed glucosuria with no evidence of infection Viruses are inspected Chest x-ray: Cardiac medially with basilar atelectasis favored over her pneumonia, correlate clinically There is elevation of the right clavicle relative to acromion related for before meals joint separation 09/07/2022 Patient clinically doing well, states that he is improved and he feels better. He is fully awake and oriented at baseline. No more episodes of confusion, no more episodes of vomiting or diarrhea. No vital abnormality He has mild hypocalcemia which is replaced. Cardiology on the case and the recommended BNP and echocardiogram which is pending Aspirin 81 mg still on hold until cleared by cardiology. Patient currently on eliquis Creatinine 1.3 Imaging showing right acromioclavicular disease however patient is symptomatic, he couldn't move his arm above his head freely. No pain or tenderness, no other symptoms. 09/08/22. Patient seen and examined. Denies any lightheadedness or dizziness. No nausea or vomiting. Tolerating diet REVIEW OF SYSTEMS: CONSTITUTIONAL: No fever, no malaise,. CARDIOVASCULAR: No chest pain, no palpitations, no syncope. PULMONARY: No shortness of breath, no cough, GASTROINTESTINAL: No diarrhea, no nausea, no vomiting, no abdominal pain. NEUROLOGICAL: No headaches, no weakness, PHYSICAL EXAMINATION: GENERAL: The patient is alert and oriented x3, not in any acute distress. Well developed, well nourished. HEENT: Pupils are round and equally reacting to light. EOMI. No scleral icterus. No conjunctival pallor. Normocephalic, atraumatic. No pharyngeal erythema. No thyromegaly. CARDIOVASCULAR: S1 and S2 present. No murmurs, rubs, or gallops. PULMONARY: Chest is clear to auscultation, no wheezing or crackles. ABDOMEN: Soft, nontender, nondistended, normoactive bowel sounds. No palpable organomegaly. MUSCULOSKELETAL: No joint swelling or deformity. EXTREMITIES: No cyanosis, clubbing, or pedal edema. NEUROLOGICAL: Gross neurological examination did not reveal any focal deficits. SKIN: No rashes. 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 Continue same treatment. Further recommendations as per clinical course of the patient Objective - Vital Signs Vital signs: Vital Signs Temp 97.9 F 09/08/22 07:20 Pulse 65 09/08/22 07:20 Resp 18 09/08/22 07:20 BP 143/88 09/08/22 07:20 Pulse Ox 97 09/08/22 07:20 FiO2 Intake & Output 09/07/22 09/08/22 09/08/22 18:59 06:59 18:59 Intake Total 1080 Balance 1080 Intake: Oral 1080 Other: # Voids 3 - Labs CBC & Chem 7: 09/07/22 06:20 09/08/22 04:31 Labs: Abnormal Lab Results - Last 24 Hours (Table) 09/07/22 09/07/22 09/07/22 Range/Units 09:20 11:29 16:20 Anion Gap (10.00-18.00) mmol/L Est GFR (CKD-EPI)AfAm (60.0-200.0) Est GFR (CKD-EPI)NonAf (60.0-200.0) Glucose (70-110) mg/dL POC Glucose (mg/dL) 124 H 152 H (70-110) mg/dL Calcium (8.7-10.3) mg/dL Ionized Calcium Carola 4.3 L (4.5-5.3) mg/dL 09/07/22 09/08/22 09/08/22 Range/Units 21:25 04:31 05:43 Anion Gap 8.10 L (10.00-18.00) mmol/L Est GFR (CKD-EPI)AfAm 53.0 L (60.0-200.0) Est GFR (CKD-EPI)NonAf 45.7 L (60.0-200.0) Glucose 157 H (70-110) mg/dL POC Glucose (mg/dL) 183 H 138 H (70-110) mg/dL Calcium 7.6 L (8.7-10.3) mg/dL Ionized Calcium Carola (4.5-5.3) mg/dL Microbiology - Last 24 Hours (Table) 09/06/22 11:44 Blood Culture - Preliminary Blood No Growth after 24 hours 09/06/22 11:44 Blood Culture - Preliminary Blood No Growth after 24 hours
--- NOTE | 2022-09-08 14:31 | P.PN ---
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 Patient had recently been seen approximate month and a half ago and diagnosed with pericarditis and treated with colchicine. Initially woke up at around 2 AM with nausea and projectile vomiting which she had never had before. He denied any actual abdominal pain. Back to sleep however woke up again at 3-4 and it was more confused and not quite feeling himself. He denied any focal weakness however felt weak all over and fatigue and therefore decided come to emergency department. He was found to have fever of 102 and denies any pain with urination however has been having some cough mainly when he lies flat. This has been going on for a few weeks. He admits that the pericarditis he was having more chest pain. Blood work shows white blood cell count 5.3, hemoglobin 12.9, sodium 134, bicarb 18, creatinine 1.5, improved to 1.3 today, total bilirubin 1.7, albumin 3.1. EKG shows sinus rhythm with low voltage. 09/08 Patient seen and examined. Patient states he feels dramatically better. Feels back to his normal self. Denies any chest pain or pressure still occasionally has a cough however no significant shortness of breath. ProBNP was checked and was 500. He has been tolerating diet. No further nausea, vomiting or diarrhea. Physical examination: Gen: This is a 77-year-old male. He is resting on the ER stretcher and appears to be comfortable and in no acute distress. VS: reviewed HEENT: Head is atraumatic, normocephalic. Pupils equal, round. Sclerae is anicteric. NECK: Supple. No JVD. LUNGS: Clear to auscultation. No wheezes or rhonchi. No intercostal retractions. HEART: Regular rate and rhythm. No murmur. ABDOMEN: Soft. No tenderness. EXTREMITIES: No pedal edema. No calf tenderness. NEUROLOGICAL: Patient is awake, alert and oriented x3. Cranial nerves 2 through 12 are grossly intact. Assessment: Acute onset of nausea and vomiting with additional fevers concerning for possible gastroenteritis versus other Recent cough, shortness breath somewhat worse with lying flat rule out component of heart failure Acute kidney injury, acidosis History of pericarditis Hypertension Hyperlipidemia Hypothyroidism Diabetes mellitus type 2 Congenital left kidney disease and chronic kidney disease Paroxysmal atrial fibrillation, currently sinus rhythm Plan: Patient with fever of 102 and acute onset of nausea and vomiting of unclear etiology, possible gastroenteritis. Patient clinically appears much better and no significant heart failure with proBNP 500. Check limited 2-D echo however this may be performed in the office. Appears stable for discharge from cardiac standpoint. Objective - Vital Signs Vital signs: Vital Signs Temp 97.9 F 09/08/22 07:20 Pulse 65 09/08/22 07:20 Resp 18 09/08/22 07:20 BP 143/88 09/08/22 07:20 Pulse Ox 97 09/08/22 07:20 FiO2 Intake & Output 09/07/22 09/08/22 09/08/22 18:59 06:59 18:59 Intake Total 1080 Balance 1080 Intake: Oral 1080 Other: # Voids 3 - Labs CBC & Chem 7: 09/07/22 06:20 09/08/22 04:31 Labs: Abnormal Lab Results - Last 24 Hours (Table) 09/07/22 09/07/22 09/08/22 Range/Units 16:20 21:25 04:31 Anion Gap 8.10 L (10.00-18.00) mmol/L Est GFR (CKD-EPI)AfAm 53.0 L (60.0-200.0) Est GFR (CKD-EPI)NonAf 45.7 L (60.0-200.0) Glucose 157 H (70-110) mg/dL POC Glucose (mg/dL) 152 H 183 H (70-110) mg/dL Calcium 7.6 L (8.7-10.3) mg/dL 09/08/22 09/08/22 Range/Units 05:43 11:35 Anion Gap (10.00-18.00) mmol/L Est GFR (CKD-EPI)AfAm (60.0-200.0) Est GFR (CKD-EPI)NonAf (60.0-200.0) Glucose (70-110) mg/dL POC Glucose (mg/dL) 138 H 211 H (70-110) mg/dL Calcium (8.7-10.3) mg/dL Microbiology - Last 24 Hours (Table) 09/06/22 11:44 Blood Culture - Preliminary Blood No Growth after 24 hours 09/06/22 11:44 Blood Culture - Preliminary Blood No Growth after 24 hours
[2022-09-08 16:17] LABS: Glucose,Whole Blood 131 mg/dL (70-110)
[2022-09-08] MEDS: amLODIPine 2.5 MG TAB PO SCH (20:44)
[2022-09-08] MEDS: ATORVASTATIN 20 MG TAB PO SCH (20:44)
[2022-09-08 21:18] LABS: Glucose,Whole Blood 165 mg/dL (70-110)
[2022-09-09] MEDS: LEVOTHYROXINE 75 MCG TAB PO SCH (06:13)
[2022-09-09 06:56] LABS: Glucose,Whole Blood 186 mg/dL (70-110)
[2022-09-09] MEDS: DOCUSATE 100 MG CAP PO SCH (08:34)
[2022-09-09] MEDS: COLCHICINE 0.6 MG EACH PO SCH (08:34)
[2022-09-09] MEDS: ARIPiprazole 2 MG TAB PO SCH (08:34)
[2022-09-09] MEDS: APIXABAN 5 MG TAB PO SCH (08:34)
[2022-09-09] MEDS: metFORMIN 500 MG TAB PO SCH (08:34)
[2022-09-09] MEDS: LOSARTAN 25 MG TAB PO SCH (08:34)
[2022-09-09 09:30] VITALS: RESP 18
[2022-09-09 10:12] LABS: Glucose,Whole Blood 190 mg/dL (70-110)
[2022-09-09 11:52] LABS: Glucose,Whole Blood 147 mg/dL (70-110)
--- NOTE | 2022-09-09 14:24 | P.DS ---
Providers Date of admission: 09/06/22 15:18 Expected date of discharge: 09/09/22 Attending physician: Sarwat Cotter MD Consults: 09/06/22 15:16 Consult Physician Urgent Consulting Provider: [facility] Consult Reason/Comments: History of recent pericarditis Do you want consulting provider notified?: Yes Primary care physician: [facility] Course: Discharge diagnoses; Acute encephalopathy resolved Paroxysmal A. fib Cardiomegaly with history of pericardectomy, rule out cardiac/pericardial disease Mild hypocalcemia Acromial clavicular joint image abnormality, asymptomatic Diabetes Mellitus Chronic kidney disease most likely diabetic nephropathy History of GERD/Reflux hx kidney stone History of prostate cancer, status post proctectomy History of peripheral vascular disease status post stent of the right lower extremity Hospital course; This is a pleasant 77 years old male with past medical history of pericarditis about one month ago since then he's complaining from chronic dyspnea and he had chest pain at that time but no more chest pain as he states. Other medical problems including peripheral artery disease status post stent and the right leg, prostatectomy, lithotripsy, cataract, pyeloplasty,, GERD, diabetes mellitus Presents because he woke up this morning because of projectile vomiting about 2:00 in the morning, he denies any blood in his vomiting, he denies abdominal pain or nausea or headache or change in mental status However he woke up again about 3-4 AM and he was more confused as per patient and at bedside. So patient and decided to come to emergency room. By the time he arrivied to the emergency room his confusion has resolved lying in bed in 45 of the head of the bed, fully awake oriented to time place and person, denies headache, no current dizziness. Patient reports some dizziness earlier and some blurred vision but this has resolved. No overt weakness or numbness in his extremities to suspect stroke. He denies chest pain for the last month, last time he had chest pain about one month ago when he had pericardial disease, no more chest pain currently, he has dyspnea and he has tolerated forward to feel better since then. Currently he denies abdominal pain vomiting or diarrhea. Earlier he had projectile bowel movement but less resolved as well.. He denies any urinary symptoms like no dysuria urgency. No headache dizziness weakness numbness blurred vision or double vision. He denies smoking alcohol or illicit drugs. Labs show an unremarkable CBC, hemoglobin 12.9. INR 1.1. Creatinine at baseline 1.5, sodium 134. Glucose 133, 85 and 162. Bilirubin 1.7. Liver enzymes AST and ALT are within normal limits. Urine analysis showed glucosuria with no evidence of infection Viruses are inspected Chest x-ray: Cardiac medially with basilar atelectasis favored over her pneumonia, correlate clinically There is elevation of the right clavicle relative to acromion related for before meals joint separation 09/07/2022 Patient clinically doing well, states that he is improved and he feels better. He is fully awake and oriented at baseline. No more episodes of confusion, no more episodes of vomiting or diarrhea. No vital abnormality He has mild hypocalcemia which is replaced. Cardiology on the case and the recommended BNP and echocardiogram which is pending Aspirin 81 mg still on hold until cleared by cardiology. Patient currently on eliquis Creatinine 1.3 Imaging showing right acromioclavicular disease however patient is symptomatic, he couldn't move his arm above his head freely. No pain or tenderness, no other symptoms. 09/08/22. Patient seen and examined. Denies any lightheadedness or dizziness. No nausea or vomiting. Tolerating diet 09/09. Patient seen and examined. Patient had brief run of A. fib with fast rate this morning, patient got his Lopressor, heart rate is better controlled. Cardiology recommended keeping patient on Lopressor daily dosing. PHYSICAL EXAMINATION: GENERAL: The patient is alert and oriented x3, not in any acute distress. Well developed, well nourished. HEENT: Pupils are round and equally reacting to light. EOMI. No scleral icterus. No conjunctival pallor. Normocephalic, atraumatic. No pharyngeal erythema. No thyromegaly. CARDIOVASCULAR: S1 and S2 present. No murmurs, rubs, or gallops. PULMONARY: Chest is clear to auscultation, no wheezing or crackles. ABDOMEN: Soft, nontender, nondistended, normoactive bowel sounds. No palpable organomegaly. MUSCULOSKELETAL: No joint swelling or deformity. EXTREMITIES: No cyanosis, clubbing, or pedal edema. NEUROLOGICAL: Gross neurological examination did not reveal any focal deficits. SKIN: No rashes. Patient Condition at Discharge: Good Plan - Discharge Summary New Discharge Prescriptions: Continue Omeprazole [PriLOSEC] 20 mg PO DAILY Atorvastatin [Lipitor] 20 mg PO HS Docusate [Colace] 100 mg PO BID ARIPiprazole 2 mg PO PC-BRKFST Levothyroxine Sodium [Synthroid] 75 mcg PO DAILY Colchicine [Colcrys] 0.6 mg PO DAILY 14 Days #14 each Losartan [Cozaar] 25 mg PO DAILY metFORMIN HCL 500 mg PO BID Insulin Degludec [Tresiba Flextouch U-100 Pen] 12 units SQ DAILY@1700 Metoprolol Tartrate [Lopressor] 25 mg PO DAILY #0 Aspirin EC [Ecotrin Low Dose] 81 mg PO HS Apixaban [Eliquis] 5 mg PO BID #60 tab amLODIPine [Norvasc] 2.5 mg PO HS Discharge Medication List Atorvastatin [Lipitor] 20 mg PO HS 04/26/14 [History] Omeprazole [PriLOSEC] 20 mg PO DAILY 04/26/14 [History] ARIPiprazole 2 mg PO PC-BRKFST 07/30/22 [History] Aspirin EC [Ecotrin Low Dose] 81 mg PO HS 07/30/22 [History] Docusate [Colace] 100 mg PO BID 07/30/22 [History] Levothyroxine Sodium [Synthroid] 75 mcg PO DAILY 07/30/22 [History] Colchicine [Colcrys] 0.6 mg PO DAILY 14 Days #14 each 07/31/22 [Rx] Apixaban [Eliquis] 5 mg PO BID #60 tab 08/01/22 [Rx] Insulin Degludec [Tresiba Flextouch U-100 Pen] 12 units SQ DAILY@1700 09/06/22 [History] Losartan [Cozaar] 25 mg PO DAILY 09/06/22 [History] amLODIPine [Norvasc] 2.5 mg PO HS 09/06/22 [History] metFORMIN HCL 500 mg PO BID 09/06/22 [History] Metoprolol Tartrate [Lopressor] 25 mg PO DAILY #0 09/09/22 [Rx] Follow up Appointment(s)/Referral(s): Veto Mcarthur DO [STAFF PHYSICIAN] - 09/16/22 11:00 am (With Lucrecia) Alexander Cowart MD [Primary Care Provider] - 09/12/22 2:30 pm (with Jocelyn) Discharge Disposition: HOME SELF-CARE
[2022-09-09 16:00] VITALS: BP 118/76; PULSE 65; TEMP 98.6
--- NOTE | 2022-09-09 17:52 | CA ---
Transthoracic Echo Report Name: Babatunde Carroll Age: 77 Gender: M : 1945 Exam Date: 09/09/2022 08:20 Exam Location: [facility] Ht (in): 70 Wt (lb): 160 Ordering Physician: Veto Mcarthur DO ([id number]) Attending/Referring Phys: Loom Fixer Apprentice Aman Curtis RDCS Procedure CPT: Indications: re: LV function, r/o pericardial effusion Cardiac Hx: PE, HTN; DM; Technical Quality: Fair Contrast 1: Total Dose (mL): Contrast 2: Total Dose (mL): MEASUREMENTS (Male / Female) Normal Values 2D ECHO LV Diastolic Diameter PLAX 4.1 cm 4.2 - 5.9 / 3.9 - 5.3 cm LV Systolic Diameter PLAX 2.7 cm LV Fractional Shortening PLAX 34.3 % IVS Diastolic Thickness 1.5 cm 0.6 - 1.0 / 0.6 - 0.9 cm IVS Systolic Thickness 1.8 cm LVPW Diastolic Thickness 1.5 cm 0.6 - 1.0 / 0.6 - 0.9 cm LVPW Systolic Thickness 1.7 cm LV Relative Wall Thickness 0.7 RV Internal Dim ED PLAX 3.2 cm LVOT Diameter 1.9 cm LA Systolic Diameter LX 3.9 cm 3.0 - 4.0 / 2.7 - 3.8 cm LV Diastolic Volume MOD 4C 86.3 cm??? LV Systolic Volume MOD 4C 36.3 cm??? LV Ejection Fraction MOD 4C 58.0 % LV Stroke Volume MOD 4C 50.0 cm??? LV Diastolic Length 4C 7.3 cm LV Systolic Length 4C 5.6 cm M-MODE Aortic Root Diameter MM 2.8 cm LA Systolic Diameter MM 3.8 cm LA Ao Ratio MM 1.4 AV Cusp Separation MM 1.7 cm FINDINGS Left Ventricle Left ventricular ejection fraction is estimated at 55-60 %. Right Ventricle Normal right ventricular size. Right Atrium Normal right atrial size. Left Atrium Normal left atrial size. Mitral Valve Structurally normal mitral valve. Aortic Valve Trileaflet aortic valve. Tricuspid Valve Structurally normal tricuspid valve. Pulmonic Valve Pulmonic valve not well visualized. Pericardium -moderte pericardial effusion. Aorta Normal size aortic root and proximal ascending aorta. CONCLUSIONS Moderate pericardial effusion without tamponade on Previewed by: Dr. Miki Vasquez MD (Electronically Signed) Final Date: 09 September 2022 17:51
== END 2022-09-09 16:10 | disposition home or self-care (01) | DRG 315 ==
LOC: EC 11:27 → 4SSUR 15:18
PROVIDERS: ADMIT Internal Medicine; ATTEND Internal Medicine
DX: I31.9 Disease of pericardium, unspecified (principal); G93.40 Encephalopathy, unspecified; N17.9 Acute kidney failure, unspecified; I48.0 Paroxysmal atrial fibrillation; F32.A Depression, unspecified; E83.51 Hypocalcemia; E78.5 Hyperlipidemia, unspecified; E11.51 Type 2 diabetes mellitus with diabetic peripheral angiopathy without gangrene; I12.9 Hypertensive chronic kidney disease with stage 1 through stage 4 chronic kidney disease, or unspecified chronic kidney disease; M25.811 Other specified joint disorders, right shoulder; E11.22 Type 2 diabetes mellitus with diabetic chronic kidney disease; E03.9 Hypothyroidism, unspecified; K21.9 Gastro-esophageal reflux disease without esophagitis; K52.9 Noninfective gastroenteritis and colitis, unspecified; N18.9 Chronic kidney disease, unspecified; Z79.01 Long term (current) use of anticoagulants; Z79.4 Long term (current) use of insulin; Z79.84 Long term (current) use of oral hypoglycemic drugs; Z79.890 Hormone replacement therapy; Z79.899 Other long term (current) drug therapy; Z85.46 Personal history of malignant neoplasm of prostate; Z87.442 Personal history of urinary calculi; Z95.820 Peripheral vascular angioplasty status with implants and grafts; Z90.79 Acquired absence of other genital organ(s)
CPT/HCPCS: 36415; 70450; 71046; 80048; 80053; 80076; 81003; 82330; 83605; 83880; 85025; 85610; 85730; 87040; 87636; 93005; 93308; 94760; 96360; 96361; 99285

== ENCOUNTER → 2023-09-03 | Outpatient (CLI) | payer MEDICARE ==
--- NOTE | 2023-09-03 14:00 | XR ---
EXAM TYPE: LUMBAR SPINE X RAY SERIES COMPARISON: NONE HISTORY: Back pain TECHNIQUE: 4 views are submitted. FINDINGS: Alignment is anatomic. The pedicles are intact. The transverse processes are intact. There is a me tallic stent and surgical clips. Vascular calcifications. Mild osteopenia. There is multilevel facet arthropathy with grade 1 anterolisthesis L4-L5. Degenerative disc disease of the thoracolumbar juncti on. IMPRESSION: 1. Mild degenerative disc disease thoracolumbar junction. 2. Facet arthropathy levels L3-S1 with grade 1 anterolisthesis of L4-L5.
--- NOTE | 2023-09-03 14:03 | XR ---
EXAMINATION TYPE: XR thoracic spine complete DATE OF EXAM: 09/03/2023 COMPARISON: NONE HISTORY: Back pain TECHNIQUE: 3 views submitted FINDINGS: Alignment is anatomic. There is no compression deformities. Vertebral body height and disc interspa kirill are maintained. Postmedian sternotomy changes. Multilevel moderate degenerative disc disease most pronounced in the mid and lower thoracic spine. IMPRESSION: 1. Multilevel degenerative disc disease..
== END | disposition home or self-care (01) ==
LOC: RADXRMAIN 13:30
PROVIDERS: ATTEND Internal Medicine Geriatric Medicine
DX: M47.817 Spondylosis without myelopathy or radiculopathy, lumbosacral region (principal); M51.35 Other intervertebral disc degeneration, thoracolumbar region; M43.16 Spondylolisthesis, lumbar region
CPT/HCPCS: 72072; 72100

== ENCOUNTER → 2023-09-26 | Outpatient (CLI) | payer MEDICARE ==
[2023-09-26 14:59] LABS: ALT 37 U/L (10-49); AST 28 U/L (14-35); Albumin 4.3 g/dL (3.8-4.9); Albumin/Globulin Ratio 1.54 Ratio (1.60-3.17); Alkaline Phosphatase 124 U/L (41-126); BUN/Creat Ratio 12.94 Ratio (12.00-20.00); Calcium 9.1 mg/dL (8.7-10.3); Carbon Dioxide 25.5 mmol/L (21.6-31.8); Chloride 104 mmol/L (96-109); Chol/HDL Ratio 3.16 Ratio; Globulin 2.8 g/dL (1.6-3.3); Glucose 134 mg/dL (70-110); LDL Cholesterol,Calculated 78.2 mg/dL (0.0-131.0); Potassium 4.3 mmol/L (3.5-5.5); Sodium 140 mmol/L (135-145); Total Bilirubin 1.5 mg/dL (0.3-1.2); Total Protein 7.1 g/dL (6.2-8.2)
[2023-09-26 18:23] LABS: Microalbumin Creatinine Ratio <6 mg/g Cr (0-30)
== END | disposition home or self-care (01) ==
LOC: LABWHC1 08:01
PROVIDERS: ATTEND Internal Medicine Endocrinology, Diabetes & Metabolism
DX: E11.65 Type 2 diabetes mellitus with hyperglycemia (principal)
CPT/HCPCS: 36415; 80053; 80061; 82043; 82570; 83036; 84443

== ENCOUNTER → 2023-10-12 | Outpatient (CLI) | payer MEDICARE ==
--- NOTE | 2023-10-12 15:55 | MR ---
EXAMINATION TYPE: MR thoracic spine wo con DATE OF EXAM: 10/12/2023 3:09 PM CLINICAL INDICATION:Male, 78 years old with history of M54.9 BACK PAIN; COMPARISON: 09/03/2023 TECHNIQUE: Multi planar, multi sequence imaging was performed utilizing: T1-weighted, short-tau inver tadeo recovery and T2-weighted of the thoracic spine. IV Contrast: cc (none if empty) FINDINGS: Alignment: Alignment is within normal limits. Vertebral bodies have preserved heights. Spinal cord: Spinal cord is within normal limits for signal. Discs: Intervertebral disc signal is maintained. No evidence of significant spinal canal or neural fo raminal stenosis. There is no evidence of extradural defects or central spinal canal narrowing at any thoracic vertebral body level Osseous structures: No abnormal bony edema on inversion recovery sequences. Multilevel osteophyte for mation and facet joint arthropathy. Scattered disc space narrowing. IMPRESSION: 1. No evidence for significant spinal canal or neural foraminal stenosis. 2. Mild multilevel degeneration changes spine.
== END | disposition home or self-care (01) ==
LOC: RADMRIMAIN 14:12
PROVIDERS: ATTEND Internal Medicine Geriatric Medicine
DX: M47.814 Spondylosis without myelopathy or radiculopathy, thoracic region (principal)
CPT/HCPCS: 72146

== ENCOUNTER → 2023-10-17 | Outpatient (CLI) | payer MEDICARE ==
[2023-10-17 19:15] LABS: Basophils # (A) 0.03 X 10*3/uL (0.00-0.10); Basophils % (A) 1.3 %; Eosinophils # (A) 0.02 X 10*3/uL (0.04-0.35); Eosinophils % (A) 0.9 %; HCT 43.7 % (39.6-50.0); HGB 12.4 g/dL (13.0-17.0); Lymphocytes # (A) 0.64 X 10*3/uL (0.90-5.00); Lymphocytes % (A) 27.4 %; MCHC 28.4 g/dL (32.0-37.0); MCV 70.5 FL (80.0-97.0); Mean Platelet Volume 10.8 FL (9.5-12.2); Monocytes # (A) 0.45 X 10*3/uL (0.20-1.00); Monocytes % (A) 19.2 %; NRBC Per 100 WBC 0 X 10*3/uL (0.00-0.01); Neutrophils # (A) 1.19 X 10*3/uL (1.80-7.70); Neutrophils % (A) 50.8 %; Platelet Count 160 X 10*3/uL (140-440); RDW 19.9 % (11.5-14.5); WBC 2.34 X 10*3/uL (4.50-10.00)
[2023-10-17 19:21] LABS: BUN/Creat Ratio 14.37 Ratio (12.00-20.00); Blood Urea Nitrogen 27.3 mg/dL (9.0-27.0); Chloride 102 mmol/L (96-109); Glucose 109 mg/dL (70-110); Potassium 4.3 mmol/L (3.5-5.5); Sodium 143 mmol/L (135-145); Uric Acid 6.2 mg/dL (3.7-8.7)
[2023-10-17 19:22] LABS: ALT 36 U/L (10-49); AST 27 U/L (14-35); Albumin 4.5 g/dL (3.8-4.9); Albumin/Globulin Ratio 1.41 Ratio (1.60-3.17); Alkaline Phosphatase 137 U/L (41-126); C Reactive Protein <0.30 mg/dL (0.00-0.80); Calcium 9.7 mg/dL (8.7-10.3); Carbon Dioxide 27.6 mmol/L (21.6-31.8); Globulin 3.2 g/dL (1.6-3.3); T4, Free (Free Thyroxine) 1.82 ng/dL (0.80-1.80); Total Bilirubin 1.1 mg/dL (0.3-1.2); Total Protein 7.7 g/dL (6.2-8.2)
[2023-10-17 19:32] LABS: Erythrocyte Sedimentation Rate 14 mm/Hr (0-20)
== END | disposition home or self-care (01) ==
LOC: LABWHC1 11:05
PROVIDERS: ATTEND Internal Medicine Geriatric Medicine
DX: N18.2 Chronic kidney disease, stage 2 (mild) (principal); D46.9 Myelodysplastic syndrome, unspecified; E03.9 Hypothyroidism, unspecified
CPT/HCPCS: 36415; 80053; 84439; 84443; 84550; 85025; 85652; 86140

== ENCOUNTER 2023-11-11 10:04 | Emergency (ER) | payer MEDICARE ==
--- NOTE | 2023-11-11 10:23 | ED ---
Weakness HPI - General Source: patient, family, RN notes reviewed Mode of arrival: ambulatory Limitations: no limitations <Shonna Ibarra - Last Filed: 11/11/23 18:55> <Beka Mayes - Last Filed: 11/11/23 20:28> - General Chief complaint: Weakness Stated complaint: weakness Time Seen by Provider: 11/11/23 10:20 - History of Present Illness Initial comments: This is a 78-year-old male presents emergency department chief complaint of generalized weakness. Patient states that over the past few months he has been experiencing extreme fatigue and feels like he is unable to complete his activities of daily living due to this. Endorses dyspnea on exertion, denies dyspnea at rest and denies paroxysmal nocturnal dyspnea. currently denies chest pain, chest pressure, palpitations, dizziness, lightheadedness, dyspnea, abdominal pain, dysuria, hematuria, increase frequency/urgency, fevers, chills. His is at bedside and states that the patient is in the midst of being evaluated with neurology and hematology for concern of Parkinson's and a hematological disorder. Denies history of CO, CVA, DVT, PE, no use of blood thinners. Has stage III Kidney disease and one kidney. Patient has had suicidal ideations over the past few months as well. He denies previous history of suicidal attempts and denies current suicidal plan. (Shonna Ibarra) - Related Data Home Medications Medication Instructions Recorded Confirmed Omeprazole [PriLOSEC] 20 mg PO DAILY 04/26/14 11/11/23 Aspirin EC [Ecotrin Low Dose] 81 mg PO DAILY 07/30/22 11/11/23 Docusate [Colace] 100 mg PO HS 07/30/22 11/11/23 Insulin Degludec [Tresiba 4 - 12 units SQ DAILY 09/06/22 11/11/23 Flextouch U-100 Pen] ALPRAZolam [Xanax] 0.25 mg PO TID PRN 11/11/23 11/11/23 ARIPiprazole [Abilify] 10 mg PO DAILY 11/11/23 11/11/23 Bumetanide [Bumex] 1 mg PO DAILY 11/11/23 11/11/23 Insulin Aspart (Niacinamide) 2 - 8 units SQ AC-TID 11/11/23 11/11/23 [Fiasp 100 Unit/ml Flextouch Pen] Levothyroxine Sodium [Synthroid] 50 mcg PO BRICE 11/11/23 11/11/23 Levothyroxine Sodium [Synthroid] 100 mcg PO MOTUWETHFRSA 11/11/23 11/11/23 Nystatin 100,000Unit/gm Cream 1 applic TOPICAL BID PRN 11/11/23 11/11/23 [Mycostatin Cream] Potassium Chloride ER [K-Dur 20] 20 meq PO DAILY 11/11/23 11/11/23 traZODone HCL [Desyrel] 100 mg PO HS 11/11/23 11/11/23 Allergies Allergy/AdvReac Type Severity Reaction Status Date / Time No Known Allergies Allergy Verified 11/11/23 11:21 Review of Systems ROS Other: All systems not noted in ROS Statement are negative. <Shonna Ibarra - Last Filed: 11/11/23 18:55> ROS Other: All systems not noted in ROS Statement are negative. <Beka Mayes - Last Filed: 11/11/23 20:28> ROS Statement: Those systems with pertinent positive or pertinent negative responses have been documented in the HPI. Past Medical History Past Medical History: Cancer, Diabetes Mellitus, GERD/Reflux Additional Past Medical History / Comment(s): hx kidney stones, prostate cancer, r leg stent History of Any Multi-Drug Resistant Organisms: None Reported Past Surgical History: Hernia Repair Additional Past Surgical History / Comment(s): prostatectomy, lithotripsy, cataract, pyeloplasty, Past Anesthesia/Blood Transfusion Reactions: No Reported Reaction Past Psychological History: Depression Smoking Status: Never smoker Past Alcohol Use History: Occasional Past Drug Use History: None Reported - Past Family History Father Family Medical History: Cancer <Shonna Ibarra - Last Filed: 11/11/23 18:55> General Exam Limitations: no limitations General appearance: alert, in no apparent distress Head exam: Present: atraumatic, normocephalic, normal inspection Eye exam: Present: normal appearance, PERRL, EOMI. Absent: scleral icterus, conjunctival injection, periorbital swelling ENT exam: Present: normal exam, mucous membranes moist Neck exam: Present: normal inspection. Absent: tenderness, meningismus, lymphadenopathy Respiratory exam: Present: normal lung sounds bilaterally. Absent: respiratory distress, wheezes, rales, rhonchi, stridor Cardiovascular Exam: Present: regular rate, normal rhythm, bradycardia, normal heart sounds. Absent: systolic murmur, diastolic murmur, rubs, gallop, clicks GI/Abdominal exam: Present: soft, normal bowel sounds. Absent: distended, tenderness, guarding, rebound, rigid Extremities exam: Present: normal inspection, full ROM, normal capillary refill. Absent: tenderness, pedal edema, joint swelling, calf tenderness Back exam: Present: normal inspection Neurological exam: Present: alert, oriented X3, CN II-XII intact Psychiatric exam: Present: normal mood, flat affect <Shonna Ibarra - Last Filed: 11/11/23 18:55> Course Vital Signs 11/11/23 11/11/23 11/11/23 10:09 10:14 14:00 Temperature 98 F 98.2 F Pulse Rate 58 L 68 49 L Respiratory 18 16 16 Rate Blood Pressure 109/70 130/86 130/66 O2 Sat by Pulse 96 98 98 Oximetry 11/11/23 11/11/23 11/11/23 15:31 16:32 19:49 Temperature 98.0 F 98.0 F Pulse Rate 49 L 48 L 54 L Respiratory 17 16 16 Rate Blood Pressure 140/71 145/73 172/81 O2 Sat by Pulse 97 99 100 Oximetry Medical Decision Making - Lab Data Result diagrams: 11/11/23 11:08 11/11/23 11:08 <Shonna Ibarra - Last Filed: 11/11/23 18:55> - Lab Data Result diagrams: 11/11/23 11:08 11/11/23 11:08 <Beka Mayes - Last Filed: 11/11/23 20:28> - Medical Decision Making Was pt. sent in by a medical professional or institution (, PA, FINANCIAL BUSINESS ANALYST, urgent care, hospital, or halfway...) When possible be specific @ -[No] Did you speak to anyone other than the patient for history (EMS, parent, family, police, friend...)? What history was obtained from this source @ -The patient's at bedside states the patient is being in the midst of evaluated for Parkinson's and hematological disorder. Additionally, patient's states that he has been increasingly fatigued which is out of the ordinary for him over the past few months. Did you review nursing and triage notes (agree or disagree)? Why? @ -[I reviewed and agree with nursing and triage notes] Were old charts reviewed (outside hosp., previous admission, EMS record, old EKG, old radiological studies, urgent care reports/EKG's, halfway records)? Report findings @ -[No old charts were reviewed] Differential Diagnosis (chest pain, altered mental status, abdominal pain women, abdominal pain men, vaginal bleeding, weakness, fever, dyspnea, syncope, headache, dizziness, GI bleed, back pain, seizure, CVA, palpatations, mental health, musculoskeletal)? @ -Differential Weakness: Hypoglycemia, shock, sepsis, hyponatremia, anemia, infection, CO, ETOH, adverse medicine reaction, overdose, stroke, this is not meant to be an all-inclusive list. EKG interpreted by me (3pts min.). @ -completed at 1036, sinus bradycardia, ventricular rate 55, NC interval 151, QTc 412. No acute signs of ischemia. X-rays interpreted by me (1pt min.). @ -X-ray no acute cardiopulmonary process or disease. CT interpreted by me (1pt min.). @ -[None done] U/S interpreted by me (1pt. min.). @ -[None done] What testing was considered but not performed or refused? (CT, X-rays, U/S, la bs)? Why? @ -[None] What meds were considered but not given or refused? Why? @ -[None] Did you discuss the management of the patient with other professionals (professionals i.e. , PA, FINANCIAL BUSINESS ANALYST, lab, RT, psych nurse, case management social worker, corporate safety coordinator, teacher, staff nuclear weapons officer, registered nurse hh case manager)? Give summary @ -Spoke with the patient's primary care provider, Dr. Cowart, in regard to the patient's emergency department visit. I reviewed the patient's laboratory studies completed in addition to chest x-ray. Physician states that he recommends the patient follows up outpatient with himself and to follow-up as scheduled with provided specialist including hematology and neurology. He is concerned that the patient has myelodysplastic syndrome therefore hematology will complete a full evaluation and possible bone marrow biopsy. Physician states that patient does not currently meet inpatient criteria, and recommends that psychiatry evaluates the patient due to suicidal ideation. With nursing staff in regards to the psychiatric consult that was placed, is recommended that the patient is a CERT and petition placed on him to go to the inpatient [facility] for further evaluation. Was smoking cessation discussed for >3mins.? @ -[No] Was critical care preformed (if so, how long)? @ -[No] Were there social determinants of health that impacted care today? How? (Homelessness, low income, unemployed, alcoholism, drug addiction, transportation, low edu. Level, literacy, decrease access to med. care, fdc, r ehab)? @ -[No] Was there de-escalation of care discussed even if they declined (Discuss DNR or withdrawal of care, Hospice)? DNR status @ -[No] What co-morbidities impacted this encounter? (DM, HTN, Smoking, COPD, CAD, Cancer, CVA, ARF, Chemo, Hep., AIDS, mental health diagnosis, sleep apnea, morbid obesity)? @ -[None] Was patient admitted / discharged? Hospital course, mention meds given and rout e, prescriptions, significant lab abnormalities, going to OR and other pertinent info. @ - transferred. 78-year-old male with generalized weakness. On examination patient is neurologically intact however has generalized decreased muscle strength. Patient may be evaluated via a broad workup including chest x-ray, labs, and EKG. On my examination patient has clinical signs of dehydration therefore he will be given 500 L of IV fluids. Patient is in agreement with this. CBC appears relatively unchanged as compared to previous in September 2023. Coagulation profile unremarkable, CMP reveals chronic kidney disease with a creatinine of 1.61 and a GFR of 47. Troponin nonelevated 0.012, TSH 1.520, lactate 1.0. Urinalysis no signs of infection. Talk with the patient's primary care provider was recommended that he be discharged to follow-up outpatient and recommend the patient keep scheduled specialist appointments with hematology and neurology. Additionally patient had an appointment scheduled this afternoon for a evaluation with physical therapy, patient will make a repeat appointment. I spoke with ER attending Dr. Mayes, Patient will be petition and CERT to be transferred to a inpatient [facility] for further evaluation of suicidal ideation with plan. Undiagnosed new problem with uncertain prognosis? @ -[No] Drug Therapy requiring intensive monitoring for toxicity (Heparin, Nitro, Insulin, Cardizem)? @ -[No] Were any procedures done? @ -[No] Diagnosis/symptom? @ -Suicidal ideation with plan Acute, or Chronic, or Acute on Chronic? @ -Reviewed Uncomplicated (without systemic symptoms) or Complicated (systemic symptoms)? @ -Complicated Side effects of treatment? @ -[No] Exacerbation, Progression, or Severe Exacerbation? @ -[No] Poses a threat to life or bodily function? How? (Chest pain, USA, CO, pneumonia, PE, COPD, DKA, ARF, appy, cholecystitis, CVA, Diverticulitis, Homicidal, Suicidal, threat to staff... and all critical care pts) @ -Possibly, can lead to end-of-life if patient follows there with suicidal ideation and plan. (Shonna Ibarra) I filled out a clinical certification on this patient patient will be transf erred to another facility with geriatric psych (Beka Mayes) - Lab Data Lab Results 11/11/23 11/11/23 11/11/23 Range/Units 11:08 11:08 11:08 WBC 2.4 L (3.8-10.6) k/uL RBC 6.00 H (4.30-5.90) m/uL Hgb 12.5 L (13.0-17.5) gm/dL Hct 42.8 (39.0-53.0) % MCV 71.3 L (80.0-100.0) fL MCH 20.9 L (25.0-35.0) pg MCHC 29.3 L (31.0-37.0) g/dL RDW 17.0 H (11.5-15.5) % Plt Count 133 L (150-450) k/uL MPV 9.0 Neutrophils % 51 % Lymphocytes % 26 % Monocytes % 16 % Eosinophils % 4 % Basophils % 1 % Neutrophils # 1.2 L (1.3-7.7) k/uL Lymphocytes # 0.6 L (1.0-4.8) k/uL Monocytes # 0.4 (0-1.0) k/uL Eosinophils # 0.1 (0-0.7) k/uL Basophils # 0.0 (0-0.2) k/uL Hypochromasia Marked Anisocytosis Slight Microcytosis Moderate PT 10.4 (10.0-12.5) sec INR 0.9 (<1.2) APTT 24.2 (22.0-30.0) sec Sodium 140 (137-145) mmol/L Potassium 4.1 (3.5-5.1) mmol/L Chloride 108 H (98-107) mmol/L Carbon Dioxide 24 (22-30) mmol/L Anion Gap 8 mmol/L BUN 19 (9-20) mg/dL Creatinine 1.61 H (0.66-1.25) mg/dL Est GFR (CKD-EPI)AfAm 47 (>60 ml/min/1.73 sqM) Est GFR (CKD-EPI)NonAf 41 (>60 ml/min/1.73 sqM) Glucose 124 H (74-99) mg/dL Plasma Lactic Acid Jj (0.7-2.0) mmol/L Calcium 8.9 (8.4-10.2) mg/dL Phosphorus 3.3 (2.5-4.5) mg/dL Magnesium 1.9 (1.6-2.3) mg/dL Total Bilirubin 1.6 H (0.2-1.3) mg/dL AST 25 (17-59) U/L ALT 28 (4-49) U/L Alkaline Phosphatase 103 (38-126) U/L Troponin I (0.000-0.034) ng/mL Total Protein 7.4 (6.3-8.2) g/dL Albumin 4.3 (3.5-5.0) g/dL TSH 1.520 (0.465-4.680) mIU/L Urine Color Urine Appearance (Clear) Urine pH (5.0-8.0) Ur Specific [place] (1.001-1.035) Urine Protein (Negative) Urine Glucose (UA) (Negative) Urine Ketones (Negative) Urine Blood (Negative) Urine Nitrite (Negative) Urine Bilirubin (Negative) Urine Urobilinogen (<2.0) mg/dL Ur Leukocyte Esterase (Negative) Urine Opiates Screen (NotDetected) Ur Oxycodone Screen (NotDetected) Urine Methadone Screen (NotDetected) Ur Barbiturates Screen (NotDetected) U Tricyclic Antidepress (NotDetected) Ur Phencyclidine Scrn (NotDetected) Ur Amphetamines Screen (NotDetected) U Methamphetamines Scrn (NotDetected) U Benzodiazepines Scrn (NotDetected) Urine Cocaine Screen (NotDetected) U Marijuana (THC) Screen (NotDetected) Influenza Type A (PCR) (Not Detectd) Influenza Type B (PCR) (Not Detectd) RSV (PCR) (Not Detectd) SARS-CoV-2 (PCR) (Not Detectd) 11/11/23 11/11/23 11/11/23 Range/Units 11:08 11:32 11:32 WBC (3.8-10.6) k/uL RBC (4.30-5.90) m/uL Hgb (13.0-17.5) gm/dL Hct (39.0-53.0) % MCV (80.0-100.0) fL MCH (25.0-35.0) pg MCHC (31.0-37.0) g/dL RDW (11.5-15.5) % Plt Count (150-450) k/uL MPV Neutrophils % % Lymphocytes % % Monocytes % % Eosinophils % % Basophils % % Neutrophils # (1.3-7.7) k/uL Lymphocytes # (1.0-4.8) k/uL Monocytes # (0-1.0) k/uL Eosinophils # (0-0.7) k/uL Basophils # (0-0.2) k/uL Hypochromasia Anisocytosis Microcytosis PT (10.0-12.5) sec INR (<1.2) APTT (22.0-30.0) sec Sodium (137-145) mmol/L Potassium (3.5-5.1) mmol/L Chloride (98-107) mmol/L Carbon Dioxide (22-30) mmol/L Anion Gap mmol/L BUN (9-20) mg/dL Creatinine (0.66-1.25) mg/dL Est GFR (CKD-EPI)AfAm (>60 ml/min/1.73 sqM) Est GFR (CKD-EPI)NonAf (>60 ml/min/1.73 sqM) Glucose (74-99) mg/dL Plasma Lactic Acid Jj (0.7-2.0) mmol/L Calcium (8.4-10.2) mg/dL Phosphorus (2.5-4.5) mg/dL Magnesium (1.6-2.3) mg/dL Total Bilirubin (0.2-1.3) mg/dL AST (17-59) U/L ALT (4-49) U/L Alkaline Phosphatase (38-126) U/L Troponin I <0.012 (0.000-0.034) ng/mL Total Protein (6.3-8.2) g/dL Albumin (3.5-5.0) g/dL TSH (0.465-4.680) mIU/L Urine Color Colorless Urine Appearance Clear (Clear) Urine pH 6.5 (5.0-8.0) Ur Specific [place] 1.008 (1.001-1.035) Urine Protein Negative (Negative) Urine Glucose (UA) Negative (Negative) Urine Ketones Negative (Negative) Urine Blood Negative (Negative) Urine Nitrite Negative (Negative) Urine Bilirubin Negative (Negative) Urine Urobilinogen <2.0 (<2.0) mg/dL Ur Leukocyte Esterase Negative (Negative) Urine Opiates Screen Not Detected (NotDetected) Ur Oxycodone Screen Not Detected (NotDetected) Urine Methadone Screen Not Detected (NotDetected) Ur Barbiturates Screen Not Detected (NotDetected) U Tricyclic Antidepress Not Detected (NotDetected) Ur Phencyclidine Scrn Not Detected (NotDetected) Ur Amphetamines Screen Not Detected (NotDetected) U Methamphetamines Scrn Not Detected (NotDetected) U Benzodiazepines Scrn Detected H (NotDetected) Urine Cocaine Screen Not Detected (NotDetected) U Marijuana (THC) Screen Not Detected (NotDetected) Influenza Type A (PCR) (Not Detectd) Influenza Type B (PCR) (Not Detectd) RSV (PCR) (Not Detectd) SARS-CoV-2 (PCR) (Not Detectd) 11/11/23 11/11/23 Range/Units 12:12 16:58 WBC (3.8-10.6) k/uL RBC (4.30-5.90) m/uL Hgb (13.0-17.5) gm/dL Hct (39.0-53.0) % MCV (80.0-100.0) fL MCH (25.0-35.0) pg MCHC (31.0-37.0) g/dL RDW (11.5-15.5) % Plt Count (150-450) k/uL MPV Neutrophils % % Lymphocytes % % Monocytes % % Eosinophils % % Basophils % % Neutrophils # (1.3-7.7) k/uL Lymphocytes # (1.0-4.8) k/uL Monocytes # (0-1.0) k/uL Eosinophils # (0-0.7) k/uL Basophils # (0-0.2) k/uL Hypochromasia Anisocytosis Microcytosis PT (10.0-12.5) sec INR (<1.2) APTT (22.0-30.0) sec Sodium (137-145) mmol/L Potassium (3.5-5.1) mmol/L Chloride (98-107) mmol/L Carbon Dioxide (22-30) mmol/L Anion Gap mmol/L BUN (9-20) mg/dL Creatinine (0.66-1.25) mg/dL Est GFR (CKD-EPI)AfAm (>60 ml/min/1.73 sqM) Est GFR (CKD-EPI)NonAf (>60 ml/min/1.73 sqM) Glucose (74-99) mg/dL Plasma Lactic Acid Jj 1.0 (0.7-2.0) mmol/L Calcium (8.4-10.2) mg/dL Phosphorus (2.5-4.5) mg/dL Magnesium (1.6-2.3) mg/dL Total Bilirubin (0.2-1.3) mg/dL AST (17-59) U/L ALT (4-49) U/L Alkaline Phosphatase (38-126) U/L Troponin I (0.000-0.034) ng/mL Total Protein (6.3-8.2) g/dL Albumin (3.5-5.0) g/dL TSH (0.465-4.680) mIU/L Urine Color Urine Appearance (Clear) Urine pH (5.0-8.0) Ur Specific [place] (1.001-1.035) Urine Protein (Negative) Urine Glucose (UA) (Negative) Urine Ketones (Negative) Urine Blood (Negative) Urine Nitrite (Negative) Urine Bilirubin (Negative) Urine Urobilinogen (<2.0) mg/dL Ur Leukocyte Esterase (Negative) Urine Opiates Screen (NotDetected) Ur Oxycodone Screen (NotDetected) Urine Methadone Screen (NotDetected) Ur Barbiturates Screen (NotDetected) U Tricyclic Antidepress (NotDetected) Ur Phencyclidine Scrn (NotDetected) Ur Amphetamines Screen (NotDetected) U Methamphetamines Scrn (NotDetected) U Benzodiazepines Scrn (NotDetected) Urine Cocaine Screen (NotDetected) U Marijuana (THC) Screen (NotDetected) Influenza Type A (PCR) Not Detected (Not Detectd) Influenza Type B (PCR) Not Detected (Not Detectd) RSV (PCR) Not Detected (Not Detectd) SARS-CoV-2 (PCR) Not Detected (Not Detectd) Disposition Is patient prescribed a controlled substance at d/c from ED?: No - Out of Hospital Transfer - Req. Specs Out of Hospital Transfer - Requested Specifics: Other Non-Acute ([facility]) <Shonna Ibarra - Last Filed: 11/11/23 18:55> <Beka Mayes - Last Filed: 11/11/23 20:28> Clinical Impression: Suicidal ideation, Depression Disposition: OTHER INSTITUTION NOT DEFINED Condition: Good Referrals: Alexander Cowart MD [Primary Care Provider] - 1-2 days
[2023-11-11] MEDS: SODIUM CHLORIDE 0.9% 500 ML 500 ML IV STA (11:32)
--- NOTE | 2023-11-11 11:40 | XR ---
EXAMINATION TYPE: XR chest 2V DATE OF EXAM: 11/11/2023 11:35 AM CLINICAL INDICATION:Male, 78 years old with history of Weakness; COMPARISON: Chest radiographs from 09/06/2022 TECHNIQUE: XR chest 2V Frontal and lateral views of the chest. FINDINGS: Lungs/Pleura: There is no evidence of pleural effusion, focal consolidation, or pneumothorax. Pulmonary vascularity: Unremarkable. Heart/mediastinum: Cardiomediastinal silhouette is unremarkable. Musculoskeletal: No acute osseous pathology. Midline sternotomy wires are noted. IMPRESSION: No acute cardiopulmonary disease/process.
[2023-11-11 11:56] LABS: Appearance,Urine Clear (Clear); Bilirubin,Urine Negative (Negative); Blood,Urine Negative (Negative); Color,Urine Colorless; Glucose,Urine (UA) Negative (Negative); Ketones,Urine Negative (Negative); Leukocyte Esterase,Urine Negative (Negative); Nitrite,Urine Negative (Negative); PH, Urine 6.5 (5.0-8.0); Protein,Urine Negative (Negative); Specific Gravity,Urine 1.008 (1.001-1.035); Urobilinogen,Urine <2.0 mg/dL (<2.0)
[2023-11-11 12:25] LABS: Anisocytosis Slight; Basophils % (A) 1 %; Eosinophils # (A) 0.1 k/uL (0-0.7); Eosinophils % (A) 4 %; HCT 42.8 % (39.0-53.0); HGB 12.5 gm/dL (13.0-17.5); Hypochromasia Marked; Lymphocytes # (A) 0.6 k/uL (1.0-4.8); Lymphocytes % (A) 26 %; MCH 20.9 pg (25.0-35.0); MCHC 29.3 g/dL (31.0-37.0); MCV 71.3 fL (80.0-100.0); Microcytosis Moderate; Monocytes # (A) 0.4 k/uL (0-1.0); Monocytes % (A) 16 %; Neutrophils # (A) 1.2 k/uL (1.3-7.7); Neutrophils % (A) 51 %; Platelet Count 133 k/uL (150-450); WBC 2.4 k/uL (3.8-10.6)
[2023-11-11 12:32] LABS: ALT 28 U/L (4-49); AST 25 U/L (17-59); African American GFR (CKD) 47 (>60 ml/min/1.73 sqM); Albumin 4.3 g/dL (3.5-5.0); Alkaline Phosphatase 103 U/L (38-126); Anion Gap 8 mmol/L; Blood Urea Nitrogen 19 mg/dL (9-20); Calcium 8.9 mg/dL (8.4-10.2); Carbon Dioxide 24 mmol/L (22-30); Chloride 108 mmol/L (98-107); Glucose 124 mg/dL (74-99); Magnesium 1.9 mg/dL (1.6-2.3); Non-African American GFR(CKD) 41 (>60 ml/min/1.73 sqM); Phosphorus 3.3 mg/dL (2.5-4.5); Potassium 4.1 mmol/L (3.5-5.1); Sodium 140 mmol/L (137-145); Total Bilirubin 1.6 mg/dL (0.2-1.3); Total Protein 7.4 g/dL (6.3-8.2)
[2023-11-11 12:40] LABS: INR 0.9 (<1.2); Partial Thromboplastin Time 24.2 sec (22.0-30.0); Prothrombin Time 10.4 sec (10.0-12.5)
[2023-11-11 18:28] LABS: Amphetamine Screen,Urine Not Detected (NotDetected); Barbiturate Screen,Urine Not Detected (NotDetected); Benzodiazepines Screen,Urine Detected (NotDetected); Cocaine Screen,Urine Not Detected (NotDetected); Methadone Screen, Urine Not Detected (NotDetected); Opiate Screen,Urine Not Detected (NotDetected); Oxycodone Screen, Urine Not Detected (NotDetected); Phencyclidine Screen,Urine Not Detected (NotDetected); Tricyclic Antidepressant,Urine Not Detected (NotDetected); Urn Cannabinoid Scrn Not Detected (NotDetected)
[2023-11-11] MEDS: LORazepam 2 MG/ML INJ IV STA (19:46)
[2023-11-11] MEDS: traZODone HCL 100 MG TAB PO SCH (20:17)
[2023-11-12 02:58] LABS: Glucose,Whole Blood 107 mg/dL (70-110)
[2023-11-12 05:22] VITALS: RESP 18
[2023-11-12 08:11] VITALS: BP 170/90; PULSE 78
[2023-11-12 08:22] VITALS: TEMP 97.8
== END 2023-11-12 08:11 | disposition other institution (70) ==
LOC: EC 10:04
DX: F32.A Depression, unspecified (principal); R45.851 Suicidal ideations; E11.22 Type 2 diabetes mellitus with diabetic chronic kidney disease; N18.9 Chronic kidney disease, unspecified; Z11.52 Encounter for screening for COVID-19; Z79.4 Long term (current) use of insulin; Z79.899 Other long term (current) drug therapy
CPT/HCPCS: 82075; 36415 ×2; 93005; 80053; 83605; 83735; 84100; 84443; 84484; 85025; 85610; 85730; 81003; 80306; 87636; 71046; 99285; 96374; 96361 ×7; J2060

== ENCOUNTER → 2024-01-22 | Outpatient (CLI) | payer MEDICARE ==
--- NOTE | 2024-01-22 10:41 | MR ---
EXAMINATION TYPE: MR brain wo con DATE OF EXAM: 01/22/2024 9:32 AM CLINICAL INDICATION: Male, 79 years old with history of CVA; COMPARISON: 09/06/2022. TECHNIQUE: Multi planar, multi sequence imaging was performed through the brain including: T1, T2, In version recovery, Diffusion weighted imaging, and gradient echo imaging. No gadolinium was given. FINDINGS: Mild cerebral atrophy with proportional dilation of ventricular system. Scattered foci of high T2 s ignal intensity are seen within the periventricular white matter. Midline structures show no abnormal ity. Diffusion-weighted imaging shows no evidence of restricted diffusion. The susceptibility weighte d images do not reveal any evidence for micro-hemorrhage. The bone marrow signal is within normal limits. Paranasal sinuses and mastoid air cells: No significant paranasal sinus disease. Visualized orbits: Orbital contents are intact. IMPRESSION: 1. No evidence of intracranial mass or acute/subacute infarct. 2. Nonspecific white matter changes, likely secondary to small vessel ischemic disease.
--- NOTE | 2024-01-22 10:47 | MR ---
EXAMINATION TYPE: MR angio head/neck wo con DATE OF EXAM: 01/22/2024 9:51 AM CLINICAL INDICATION: Male, 79 years old with history of CVA; COMPARISON: Same day MRI Technical: MRA brain: 2D and 3-D [id number] Axial with MIP and 3-D reconstruction. Performed on a separate w orkstation. MRA neck: Multiplanar, multi-sequence imaging as well as [id number] and phase was performed extra cranial vasculature of the neck. 3-D reformatted images and maximum intensity projection reformatted images were submitted for evaluation, these are performed on a separate workstation. IV Contrast: Patient refused contrast Findings: Vertebral arteries: The vertebral arteries are patent. Vertebral arteries are: Codominant. Basilar artery: The basilar artery is intact. The basilar artery bifurcation is normal. Internal Carotid arteries: The cervical, petrous, cavernous and supraclinoid segments are normal. URI: Patent with no evidence of aneurysm. ACOM: Present without evidence of aneurysm. MCA: Patent with no evidence of aneurysm. MATH INTERVENTIONIST: Patent with no evidence of aneurysm. PCOM: Hypoplastic bilaterally. RIGHT CAROTID SYSTEM: The common carotid artery is patent. The carotid bifurcations demonstrates no e vidence for hemodynamically significant stenosis. The internal carotid artery is patent. LEFT CAROTID SYSTEM: The common carotid artery is patent. The carotid bifurcations demonstrates no e vidence for hemodynamically significant stenosis. The internal carotid artery is patent. The origins of the great vessels and vertebral arteries appear unremarkable. Vertebral arteries are s lightly left dominant. IMPRESSION: Limited evaluation without contrast. Limited evaluation due to possible susceptibility artifact. 1. No evidence of intracranial aneurysm or significant stenosis. 2. No evidence of significant stenosis at the carotid bifurcations. The carotid and vertebral arteri es are patent. 3. No evidence aneurysm.
== END | disposition home or self-care (01) ==
LOC: RADMRIMAIN 07:50
PROVIDERS: ATTEND Psychiatry & Neurology Neurology
DX: I67.9 Cerebrovascular disease, unspecified (principal); R90.82 White matter disease, unspecified; Z86.79 Personal history of other diseases of the circulatory system
CPT/HCPCS: 70544; 70547; 70551

== ENCOUNTER → 2024-01-27 | Outpatient (CLI) | payer MEDICARE ==
[2024-01-27 17:10] LABS: ALT 130 U/L (10-49); AST 69 U/L (14-35); Albumin 4.4 g/dL (3.8-4.9); Albumin/Globulin Ratio 1.57 Ratio (1.60-3.17); Alkaline Phosphatase 170 U/L (41-126); BUN/Creat Ratio 12.12 Ratio (12.00-20.00); Blood Urea Nitrogen 19.4 mg/dL (9.0-27.0); Carbon Dioxide 26.9 mmol/L (21.6-31.8); Chloride 105 mmol/L (96-109); Chol/HDL Ratio 3.51 Ratio; Globulin 2.8 g/dL (1.6-3.3); Glucose 134 mg/dL (70-110); LDL Cholesterol,Calculated 98.8 mg/dL (0.0-131.0); Potassium 4.6 mmol/L (3.5-5.5); Sodium 141 mmol/L (135-145); Total Protein 7.2 g/dL (6.2-8.2)
== END | disposition home or self-care (01) ==
LOC: LABWHC1 08:17
PROVIDERS: ATTEND Internal Medicine Endocrinology, Diabetes & Metabolism
DX: E11.65 Type 2 diabetes mellitus with hyperglycemia (principal)
CPT/HCPCS: 36415; 80053; 80061; 82043; 82570; 83036; 84443